=== PATIENT | female | born 1945 | race Caucasian/White ===

== ENCOUNTER → 2017-03-12 08:29 | Outpatient (CLI) | payer MEDICARE, BC ==
[2014-01-05 11:57] VITALS: BMI 32.1
[~2017-03-12 08:29] MED LIST: CLARITIN 10 MG10 MG PO; GLUCOPHAGE1000 MG PO; HYDROCODON-ACE1 EAC7 PO; LASIX20 MG PO; NORVASC5 MG PO; TOPROL XL200 MG PO; ZESTRIL40 MG PO
== END | disposition home or self-care (01) ==
LOC: D.CT 08:29
DX: M51.36 Other intervertebral disc degeneration, lumbar region (principal)

== ENCOUNTER 2017-07-14 05:43 | Day surgery (SDC) | payer MEDICARE, BC ==
[2017-07-13 13:45] LABS: HEMOGLOBIN 11.5 g/dL (12-16); MCH 28.5 pg (26.0-34.0); MCHC 32.9 g/dL (31.0-37.0); MCV 86.8 fL (80.0-100.0); MEAN PLATELET VOLUME 9.9 fL (7.4-10.4); RBC 4.03 10x6/uL (4.00-5.40); RDW 13.1 % (11.5-14.5); WBC 6.3 10x3/uL (4.8-10.8)
[2017-07-13 14:11] LABS: ANION GAP 11.6 mmol/L (8-16); CALCIUM 8.9 mg/dL (8.5-10.1); CARBON DIOXIDE 30.2 mmol/L (21.0-32.0); CREATININE - SERUM 1.1 mg/dL (0.6-1.3); POTASSIUM - SERUM 4.8 mmol/L (3.5-5.1)
[~2017-07-14] VITALS: Ht 144.8 cm; Wt 65.3 kg
--- NOTE | ~2017-07-14 | OP ---
PATIENT NAME: OMAYRA ONTIVEROS MEDICAL RECORD: [id number] :47 LOCATION:[facility] ADMISSION DATE: SURGEON: ROSALIA IRIZARRY MD DATE OF OPERATION: 07/14/2017 PREOPERATIVE DIAGNOSIS: Disc herniation L4-L5, right with lumbar spinal stenosis and foraminal stenosis at L4-L5, right. PROCEDURES: Lumbar laminotomy, medial facetectomy and foraminotomy and discectomy at L4-L5 right with METRx retractor. DESCRIPTION AND TECHNIQUE: After induction of general endotracheal anesthesia, the patient was rolled prone on a Daren frame. Lumbar spine was prepped and draped in usual sterile fashion. Fluoroscopic x-ray and spinal needle localized at L4-L5 interspace on the right side. A stab incision was created with #11 blade and series of dilators was used to advance a METRx retractor to the L4-L5 interspace on the right side. Flow was confirmed with fluoroscopic x-ray. A microscope and Midas Kirt drill were used to perform laminotomy, medial facetectomy and foraminotomy of L4-L5 on the right. Hypertrophied ligamentum flavum was removed with Cloward rongeurs. Following this, the dura was decompressed well. Posteriorly, there is a ventral disc herniation compressing the nerve root from the ventral side. This was removed with pituitary rongeurs. Additional material was removed from the disc space with curettes and pituitary rongeurs. Following this, the L5 nerve root was decompressed well. Meticulous hemostasis was maintained throughout the wound. Wound was irrigated with copious amounts of Ancef irrigant solution. The retractor was removed. The fascia was closed with 2-0 Vicryl suture, the subdermal layer was closed with 3-0 Vicryl suture, and skin was closed with tesfaye. A sterile dressing was applied to the wound. The patient was awakened in good condition and taken to recovery. All counts were reported as correct. Estimated blood loss was minimal. TRANSINT:[id number] Voice Confirmation ID: [id number] DOCUMENT ID: [id number] ROSALIA IRIZARRY MD CC: [id number] DICTATION DATE: 07/21/171727 LANDSCAPE HORTICULTURE INSTRUCTOR: 07/21/17 1830 [facility] 07/14/17 [place] [address]
[2017-07-14] MEDS ORDERED: DESERYL100 MG PO (11:15)
[2017-07-14] MEDS ORDERED: OMEPRAZOLE40 MG PO (11:15)
[2017-07-14] MEDS ORDERED: NEURONTIN600 MG (11:16)
[2017-07-14] MEDS ORDERED: FEXOFENADINE H180 MG PO (11:17)
[2017-07-14] MEDS ORDERED: HYDROCODONE-APA1 TAB PO (11:18)
[2017-07-14 11:29] VITALS: BP 137/69; Ht 144.8 cm; Wt 65.3 kg
== END 2017-07-14 17:24 | disposition home or self-care (01) ==
LOC: D.OPS 05:43 → D.PAN 12:00 → D.OPS 17:24
PROVIDERS: Anesthesiology
DX: M51.16 Intervertebral disc disorders with radiculopathy, lumbar region (principal); I10 Essential (primary) hypertension; E78.5 Hyperlipidemia, unspecified; Z95.0 Presence of cardiac pacemaker; Z01.812 Encounter for preprocedural laboratory examination

== ENCOUNTER → 2018-10-11 12:11 | Outpatient (CLI) | payer MEDICARE, BC ==
[2017-07-14 11:29] VITALS: BMI 31.2
--- NOTE | ~2018-10-11 | EC ---
PATIENT:OMAYRA ONTIVEROS DATE OF SERVICE: 10/11/18 SEX: F MEDICAL RECORD: [id number] DATE OF : 47 LOCATION:[facility] AGE OF PATIENT: 73 ADMISSION DATE: 10/11/18 REFERRING PHYSICIAN: INTERPRETING PHYSICIAN: ROSY ABAD MD ECHOCARDIOGRAM REPORT ECHO CHARGES 4 ECHO COMPLETE Date: 10/11/18 CLINICAL DIAGNOSIS: ARRHYTHMIAS H/O HTN/PACEMAKER PLACEMENT ECHOCARDIOGRAPHIC MEASUREMENTS (adult normal given) AC root (d.<3.7cm) 3.1 cm LV Septum d (<1.2 cm> 0.8 cm Valve Excursion 0.8 cm LV Septum (systole) 1.5 cm Left Atria (s.<4.0cm> 3.3 cm LVPW d(<1.2cm) 0.8 cm RV (d.<2.3cm) 2.5 cm LVPW (sytole) 1.5 cm LV diastole(<5.6CM) 4.7 cm MV E-F(>70mm/sec) cm LV systole 2.5 cm LVOT Diameter 1.8 cm MV exc.(>10mm) cm Est.ejection fraction (50-75%) % DOPPLER: LVIT cm/sec A 119 cm/sec E 102 cm/sec LA cm/sec RVSP 41.2 mmHg LVOT 105 cm/sec AOP1/2T m/s Asc. Ao 460 cm/sec RVOT 57.0 cm/sec RA cm/sec PA 101 cm/sec AV Gradient Peak 85.0 mmHg AV Mean 56.0 mmHg AV Area 0.6 cm MV Gradient Peak 8.0 mmHg MV Mean 2.6 mmHg MV Area cm COMMENTS: OP - HC Skip Load Driver: 1 PAVEL BARCENASOE Kitchen Manager: 3 Dr. Sarmiento TAPE# PACS Pericardial Effusion N DATE OF SERVICE: Adequate 2-D echo, color-flow and spectral Doppler, and M-mode. No LVH. LV internal dimension is normal. Wall motion normal. EF is greater than or equal to 55%. Aortic valve is calcified with restriction of leaflet motion. Peak gradient of 85 mmHg, putting this in severe range. Left atrium is normal at 3.3 cm. Mitral valve shows no prolapse. Trace TR. Right-sided chambers are grossly normal. Trace TR. ECHOCARDIOGRAM REPORT [id number] OMAYRA ONTIVEROS TRANSINT:[id number] Voice Confirmation ID: [id number] DOCUMENT ID: [id number] ROSY ABAD MD CC: [id number] DICTATION DATE: 10/12/18 1203 PICKLE CUTTER: 10/12/18 1247 DEP CLI 10/11/18 [place] [id number] [place] [id number]
[~2018-10-11 12:11] MED LIST changes: +DESERYL100 MG PO; +FEXOFENADINE H180 MG PO; +HYDROCODONE-APA1 TAB PO; +NEURONTIN600 MG; +OMEPRAZOLE40 MG PO
== END | disposition home or self-care (01) ==
LOC: D.HCCARDIO 12:11
PROVIDERS: ATTEND Internal Medicine Interventional Cardiology
DX: I48.91 Unspecified atrial fibrillation (principal)

== ENCOUNTER → 2018-10-26 11:21 | Outpatient (CLI) | payer MEDICARE, BC ==
--- NOTE | ~2018-10-26 | HEMODYNAMI ---
PATIENT:OMAYRA ONTIVEROS MEDICAL RECORD: [id number] : 47 LOCATION:[facility] ADMISSION DATE: 10/26/18 Generatedon:10/26/201814:42 Patient name: OMAYRA ONTIVEROS Patient #: [id number] SSN: DO B: 1945 Date of study: 10/26/2018 Page: Of Hemodynamic Procedure Report Patient Data Patient Demographics Procedure consent was obtained First Name: OMAYRA Gender: Female Last Name: RAMA : 1945 Middle Initial: ALMA Age: 73 year(s) Patient #: [id number] Race: Unknown Additional ID: [id number] Contact details Address: [place] [address] State: [place] City: [place] Zip code: [address] Past Medical History Allergies Allergen Reaction Date Comments Reported Other allergy 10/26/2018 adhesive tape, aspirin, hydrocodone, nsaids, tylenol Admission Admission Data Admission Date: 10/26/2018 Admission Time: 11:21 Admit Source: Other Lab Results Lab Result Date: 10/26/2018 Lab Result Time: 0:05 Biochemistry Name Units Result Min Max BUN mg/dl 13 --(--*-)-- 7 18 Creatinine mg/dl 0.9 --(-*--)-- 0.6 1.3 CBC Name Units Result Min Max Hematocrit % 35.4 *-(----)-- 42 54 Hemoglobin g/dl 11.8 *-(----)-- 13.5 17.5 Procedure Procedure Types Cath Procedure Diagnostic Procedure LHC LHC w/Coronaries Peripheral Cath Diagnostic Procedure Band Maker Peripheral Procedures Four Vessel Arteriogram Procedure Description Procedure Date Procedure Date: 10/26/2018 Procedure Start Time: 14:23 Procedure End Time: 14:41 Procedure Staff Name Function Mannie Hanks MD Performing Physician Robert Driscoll RT Monitor Love Gastelum RT Scrub Crystal Montana RN Nurse Procedure Data Cath Procedure Fluoroscopy Diagnostic fluoroscopy Total fluoroscopy Time: 3.4 time: 3.4 min min Diagnostic fluoroscopy Total fluoroscopy dose: 624 dose: 624 mGy mGy Contrast Material Contrast Material Type Amount (ml) Isovue 300 85 Entry Location Entry Primary Successful Side Size Upsize Upsize Entry Closure Succes sful Closure Location (Fr) 1 (Fr) 2 (Fr) Remarks Device Remarks Femoral Right 5 Fr Exoseal artery Estimated blood loss: 5 ml Diagnostic catheters Device Type Used For End Catheter Placement MULTIPACK JL 4.0 5Fr Procedure catheter DIAGNOSTIC JL 5 5Fr Procedure catheter ([id number]) MULTIPACK 3DRC 5Fr Procedure catheter DIAGNOSTIC AL1 5Fr Procedure catheter ([id number]) Procedure Complications No complications Procedure Medications Medication Administration Route Dosage 0.9% NaCl I.V. 100 ml/hr Oxygen etCO2 Nasal cannula 2 l/min Lidocaine 2% added to field 20 Heparin Flush Bag added to field 2 bags (1000units/500ml NS) Versed I.V. 2 mg Fentanyl I.V. 50 mcg Hemodynamics Rest Heart Rate: 65 (bpm) Pressure Samples Time Site Value (mmHg) Purpose Heart Use Rate(bpm) 14:35 LV 156/26,35 Snapshot 59 Gradients Valve Time Site Site Mean SEP/DFP Peak To Heart Use 1 2 (mmHg) (sec/min) Peak Rate (mmHg) (bpm) Aortic 14:37 LV AO 71 Snapshots Pre Cath Intra NCS Post Cath Vital Signs Time Heart Resp SPO2 etCO2 NIBP (mmHg) Rhythm Pain Sedation Rate (ipm) (%) (mmHg) Status Level (bpm) 14:10:23 65 14 97 13 109/61(81) NSR 0 (11) 10(A) , No pain 14:14:33 66 16 98 37.2 120/71(99) NSR 0 (11) 10(A) , No pain 14:18:45 64 18 98 42.4 114/68(93) NSR 0 (11) 9(A) , No pain 14:24:00 64 19 98 20.1 108/61(89) NSR 0 (11) 9(A) , No pain 14:28:14 64 15 98 26.8 110/54(85) NSR 0 (11) 9(A) , No pain 14:32:28 68 10 98 38 106/59(88) NSR 0 (11) 9(A) , No pain 14:36:34 69 10 98 34.9 101/58(79) NSR 0 (11) 9(A) , No pain 14:40:44 66 12 98 29.7 116/63(103) NSR 0 (11) 10(A) , No pain Medications Time Medication Route Dose Verified Delivered Reason Notes Eff ectiveness by by 14:15:27 0.9% NaCl I.V. 100 Mannie Crystal used for ml/hr Drasco Rubén procedure MD GREENE 14:15:33 Oxygen etCO2 2 Mannie Crystal used for Nasal l/min [facility] procedure cannula MD GREENE 14:15:38 Lidocaine 2% added 20ml Mannie Mannie for local to vial [facility] anesthetic field MD [place] 14:15:43 Heparin Flush added 2 Mannie Mannie used for Bag to bags [facility] procedure (1000units/500ml field MD [place] NS) 14:16:23 Versed I.V. 2 mg Mannie Crystal for Drasco Rubén sedation MD [place] 14:16:33 Fentanyl I.V. 50 Mannie Crystal for mcg Drasco Rubén sedation MD GREENEsurgical assistant Log Time Note 13:40:14 Robert Driscoll RT(R) sent for patient. Start room use. 13:43:49 Informed consent obtained and on chart 13:48:11 Admit Source: Other 13:48:19 Diagnostic Cath status Elective 13:48:21 Time tracking: Regular hours (M-F 7:00 - 5:00) 13:48:24 Plan of Care:Hemodynamics will remain stable., Cardiac rhythm will remain stable., Comfort level will be maintained., Respiratory function will remain adequate., Patient/ family verbilizes understanding of procedure., Procedure tolerated without complication., Recovers from procedure without complications.. 13:48:41 H&P Date Dictated: 10/19/2018 Within 30 days and on chart., H&P Addendum completed by physician on day of procedure. (MUST COMPLETE FOR ALL OUTPATIENTS). 13:50:06 Patient allergic to Other allergyadhesive tape, aspirin, hydrocodone, nsaids, tylenol 13:52:22 Lab Result : BUN 13 mg/dl 13:52:22 Lab Result : Creatinine 0.9 mg/dl 13:52:22 Lab Result : Hemoglobin 11.8 g/dl 13:52:22 Lab Result : Hematocrit 35.4 % 13:52:25 Lab results completed and on chart. 14:03:34 Patient received from Pre/Post Procedure Room to CCL 1 Alert and oriented. Tansferred to table in Supine position. 14:03:36 Warm blankets applied, and emily hugger turned on for patient comfort. 14:03:36 Correct patient and procedure confirmed by team. 14:03:37 ECG and BP/O2 sat monitors applied to patient. 14:09:08 Vital chart was started 14:13:50 Pre-procedure instructions explained to patient. 14:13:51 Pre-op teaching completed and patient verbalized understanding. 14:13:54 Family in waiting room. 14:13:58 Patient NPO since Breakfast. 14:14:01 Is the patient allergic to Iodine/contrast media? No. 14:14:09 Is patient on blood thinner?No 14:14:12 Patient diabetic? Yes. 14:14:15 If diabetic: On Metformin? Yes 14:14:23 If on Metformin: Last Dose? 10/24/2018 14:14:29 Previous problem with sedation/anesthesia? No ? 14:14:30 Snore? Yes 14:14:31 Sleep apnea? No 14:14:32 Deviated septum? No 14:14:33 Opens mouth fully? Yes 14:14:34 Sticks out tongue? Yes 14:14:37 Airway obstruction? No ? 14:14:42 Dentures? Yes top in tight 14:14:47 Pre procedure: right dorsailis pedis pulse 2+ Normal; easily identifiable; not easily obliterated 14:14:49 Patient pain scale 0/10 ?. 14:15:09 IV patent on arrival in left hand with 0.9% NaCl at [facility]. 14:15:14 Right groin area was prepped with chlora-prep and draped in sterile fashion 14:15:16 Alarms reviewed by R. N. 14:15:16 Sharps counted by scrub and verified by R.N. 14:15:25 Use device set Femoral Dx 14:15:27 0.9% NaCl 100 ml/hr I.V. was administered by Crystal Montana RN; used for procedure; 14:15:28 ACIST Syringe (77328) opened to sterile field. 14:15:28 Bag Decanter (2002S) opened to sterile field. 14:15:29 Medline Cath Pack ([id number]) opened to sterile field. 14:15:30 ACIST Hand Control (50168) opened to sterile field. 14:15:31 ACIST Manifold (91521) opened to sterile field. 14:15:32 DIAGNOSTIC Multipack 5Fr catheter set ([id number]) opened to sterile field. 14:15:33 Oxygen 2 l/min etCO2 Nasal cannula was administered by Crystal Montana RN; used for procedure; 14:15:33 Tegaderm 4 x 4 (1626W) opened to sterile field. 14:15:34 SHEATH 5FR [place] (WTC330) opened to sterile field. 14:15:35 DIAGNOSTIC WIRE .035 260cm J wire (464704) opened to sterile field. 14:15:38 Lidocaine 2% 20ml vial added to field was administered by Mannie Hansk MD; for local anesthetic; 14:15:43 Heparin Flush Bag (1000units/500ml NS) 2 bags added to field was administered by Mannie Hanks MD; used for procedure; 14:15:44 Baseline sample Acquired. 14:15:47 Rhythm: sinus rhythm 14:15:49 Full Disclosure recording started 14:15:55 Physician arrived 14:15:56 --------ALL STOP TIME OUT------ 14:15:56 Final Timeout: patient, procedure, and site verified with staff and physician. All members of the team are in agreement. 14:15:58 Right groin site verified by team. 14:16:01 Maximum allowable Isovue 300 dose 300ml. Physician notified. (300ml for normal creatinines. For patients with creatinine of 1.7 or higher multiply weight(kg) x 5 divided by creatinine.) 14:16:09 Fire Safety Assessment: A--An alcohol-based skin anteseptic being used preoperatively., C--Open oxygen or nitrous oxide is being used., D--An ESU, laser, or fiber-optic light is being used. 14:16:12 Physical assessment completed. ASA score P 2 - A patient with mild systemic disease as per Mannie Hanks MD. 14:16:17 Sedation plan: IV Moderate Sedation Medication:Versed, Fentanyl 14:16:23 Versed 2 mg I.V. was administered by Crystal Montana RN; for sedation; 14:16:33 Fentanyl 50 mcg I.V. was administered by Crystal Montana RN; for sedation; 14:19:19 Zero performed for pressure channel P1 14:19:26 Zero performed for pressure channel P1 14:23:07 Procedure started. 14:23:12 Local anesthetic to right femoral artery with Lidocaine 2% by Mannie Hanks MD.INITIAL ACCESS ONLY 14:23:39 A 5 Fr sheath was inserted into the Right Femoral artery 14:24:12 A MULTIPACK JL 4.0 5Fr catheter was advanced over the wire and used for Procedure. 14:25:00 LCA angiography performed. 14:27:37 Catheter exchanged over wire. 14:27:49 A DIAGNOSTIC JL 5 5Fr catheter ([id number]) was advanced over the wire and used for Procedure. 14:28:31 LCA angiography performed. 14:28:46 Catheter exchanged over wire. 14:28:52 A MULTIPACK 3DRC 5Fr catheter was advanced over the wire and used for Procedure. 14:29:40 RCA angiography performed. 14:30:47 Right carotid angiography performed. 14:31:20 Left carotid angiography performed. 14:31:49 Catheter exchanged over wire. 14:33:38 A DIAGNOSTIC AL1 5Fr catheter (558117S) was advanced over the wire and used for Procedure. 14:34:42 ROADRUNNER .035 260 glide wire (N47117) opened to sterile field. 14:35:12 road runner wire advanced. 14:36:32 LV gram done using SAEED 14:36:34 Injector settings: Ml/sec: 5, Volume: 15, 14:36:36 LV hemodynamics recorded. 14:37:19 EF : 50 % 14:37:42 Catheter removed. 14:37:44 EXOSEAL 5Fr (EX500) opened to sterile field. 14:37:57 Sheath removed intact; hemostasis achieved with Exoseal to the Right Femoral artery. 14:37:59 Procedure ended.(Physican Out) 14:38:35 Fluoroscopy time 03.40 minutes. 14:38:40 Flurop Dose total: 624 14:38:40 Fluoroscopy dose: 624 mGy 14:38:46 Contrast amount:Isovue 300 85ml. 14:38:48 Sharps counted by scrub and verified by R.N. 14:38:51 Insertion/operative site no bleeding no hematoma. 14:39:44 Post Procedure Pulses reassessed and unchanged 14:39:47 Post-procedure physical assessment completed. ASA score P 2 - A patient with mild systemic disease as per Mannie Hanks MD. 14:39:50 Post procedure rhythm: unchanged. 14:39:53 Estimated blood loss: 5 ml 14:39:55 Post procedure instruction explained to patient.Patient verbalizes understanding. 14:39:56 Patient needs reinforcement of post procedure teaching. 14:41:26 Procedure and supply charges have been captured, reviewed, submitted and are correct. 14:41:28 Procedure Complication : No complications 14:41:30 Vital chart was stopped 14:41:31 See physician's report for complete and final results. 14:41:32 Report given to Pre/Post Procedure Room. 14:41:34 Patient transfered to Pre/Post Procedure Room with Stretcher. 14:41:36 Procedure ended. 14:41:36 Full Disclosure recording stopped 14:41:39 End room use (Document Last) Device Usage Item Name Manufacture Quantity Catalog Hospital Part Current Minimal L ot# / Number Charge Number Stock Stock Serial# Code ACIST Acist 1 52296 237240 337402 245536 20 Syringe Medical (66369) Systems Inc Bag Microtek 1 2001S 460838 20017 149824 5 Decanter Medical Inc. () Medline Medline 1 [id number] 535666 70882 704106 5 Cath Pack ([id number]) ACIST Hand Acist 1 15427 349965 441238 764912 5 Control Medical (48879) Systems Inc ACIST Acist 1 30897 182407 966224 772719 5 Manifold Medical (90077) Systems Inc DIAGNOSTIC Cardinal 1 [id number] 311706 49586 814995 30 Multipack Health 5Fr catheter set (KI2383) Tegaderm 4 3M 1 1626W 182528 821464 904489 5 x 4 (1626W) SHEATH 5FR Terumo 1 AGR795 055624 742450 244841 5 [place] (SQV186) DIAGNOSTIC [facility] Josef 1 665548 043420 547761 455039 30 WIRE .035 260cm J wire (711219) MULTIPACK Cardinal 1 182750 5 JL 4.0 5Fr Health catheter DIAGNOSTIC Cardinal 1 [id number] 164245 263818 012412 5 JL 5 5Fr Health catheter (155926O) MULTIPACK Cardinal 1 299471 5 3DRC 5Fr Health catheter DIAGNOSTIC Cardinal 1 [id number] 628942 404258 813932 15 AL1 5Fr Health catheter (985693M) [facility] 1 Q19881 060023 630570 557737 5 .035 260 glide wire (W28188) EXOSEAL 5Fr Cardinal 1 EX500 833765 313061 384833 10 (EX500) Health Signature Audit [place] Stage Time Signature Unsigned Intra-Procedure 10/26/2018 Robert Driscoll 2:42:17 PM RT(R) Signatures Monitor : Robert Driscoll RT Signature : Date : Time : [address] [address]
[~2018-10-26 11:21] MED LIST changes: +AMIODARONE HCL200 MG PO; +COLACE100 MG PO; -GLUCOPHAGE1000 MG PO; +GLUCOPHAGE500 MG PO; +HEMOCYTE PLUS C1 CAP PO; +HUMULIN R100 U/ML SC; +K-TAB10 MEQ PO; +LIPITOR10 MG PO; +LOPRESSOR25 MG PO; +MYLANTA / MAALO30 ML PO; -NEURONTIN600 MG; +NEURONTIN800 MG PO; +NORVASC10 MG PO; -NORVASC5 MG PO; +OPTIVE SENSITI1 EACH EACH EYE; +PERCOCET 5-3251 TAB PO; +PRED FORTE5 ML LEFT EYE; +REFRESH; +Senokot-S Tablet PO; +ULTRAM50 MG PO; +ZOLOFT100 MG PO; +ZOLOFT50 MG PO
[2018-10-26 11:59] VITALS: BP 144/73; BMI 32.7
[2018-10-26 12:41] LABS: ANION GAP 14.4 mmol/L (8-16); CARBON DIOXIDE 25.9 mmol/L (21.0-32.0); CREATININE - SERUM 0.9 mg/dL (0.6-1.3); POTASSIUM - SERUM 4.3 mmol/L (3.5-5.1)
[2018-10-26 12:50] LABS: BASOPHILS 1.1 % (0-2); EOSINOPHILS 1.5 % (0-7); HEMATOCRIT 35.4 % (36.0-48.0); HEMOGLOBIN 11.8 g/dL (12-16); IMMATURE GRANULOCYTES 0.7 % (0-5); MCHC 33.3 g/dL (31.0-37.0); MCV 84.1 fL (80.0-100.0); MONOCYTES 6.3 % (2-11); NEUTROPHILS 55.4 % (40-80); PLATELET COUNT 244 10x3/uL (130-400); RBC 4.21 10x6/uL (4.00-5.40); RDW 13.2 % (11.5-14.5); WBC 7.2 10x3/uL (4.8-10.8)
--- NOTE | 2018-10-26 14:50 | NUR ---
RECIEVED TO ROOM VIA STRETCHER FROM SALES UTILITY REPRESENTATIVE WITH 5 FR EXOSEAL R/GROIN CDI NO BLEEDING OR HEMATOMA NOTED. INSTRUCTED PATIENT TO KEEP HEAD FLAT ON PILLOW WITH RLE STRAIGHT. DR ABAD PRESENT IN ROOM WITH FAMILY.
--- NOTE | 2018-10-26 15:13 | NUR ---
5 FR EXOSEAL R/GROIN IS CDI WITH NO BLEEDING OR HEMATOMA NOTED. TOLERATING SIPS OF SODA WITH NAUSEA DENIED
--- NOTE | 2018-10-26 15:49 | NUR ---
5 FR EXOSEAL R/GROIN IS CDI WITH NO BLEEDING OR HEMATOMA NOTED. PATIENT TOLERATING SANDWICH AND SODA WITH NAUSEA DENIED. HOB UP 30 FOR COMFORT
--- NOTE | 2018-10-26 16:04 | NUR ---
5 FR EXOSEAL R/GROIN IS CDI WITH CHEST PAIN DENIED. PIV REMOVED WITH DRESSING APPLIED. PATIENT UP TO GET DRESSED FOR DISCHARGE HOME WITH FAMILY NO DISTRESS
--- NOTE | 2018-10-26 16:12 | NUR ---
PIV REMOVED WITH DRESSING APPLIED. 5 FR EXOSEAL R/GROIN IS CDI. PATIENT UP TO GET DRESSED FOR DISCHARGE HOME NO DISTRESS
--- NOTE | 2018-10-26 16:18 | NUR ---
VERBAL AND WRITTEN DISCHARGE GONE OVER WITH PATIENT AND FAMILY. 5 FR EXOSEAL R/GROIN IS CDI NO BLEEDING OR HEMATOMA NOTED. PATIENT DENIED CHEST PAIN. LEFT VIA WC TO PARKING FOR TRANSPORT HOME NO DISTRESS
--- NOTE | 2018-11-03 14:15 | OP ---
PATIENT NAME: OMAYRA ONTIVEROS MEDICAL RECORD: [id number] :47 LOCATION:D.CAT ADMISSION DATE: SURGEON: ROSY ABAD MD DATE OF OPERATION: 10/26/2018 PROCEDURE: Left heart catheterization, selective coronary angiography plus 4-vessel arteriography, right femoral artery approach. CATHETERS: Lisandra left, Lisandra right, AL2, and we were able to run a wire across the aortic valve. The procedure was well tolerated. The patient was returned to the chew. Sheath was removed. ExoSeal device was placed. FINDINGS: Left ventriculography in 30-degree SAEED view: Normal wall motion and normal systolic function. A pullback across the aortic valve showed a gradient of 60 mmHg consistent with 72 at echocardiography study. CORONARY ANATOMY: LEFT MAIN: Left main is free of disease. LAD: Has about 90% stenosis in distal third. This is a small vessel, not quite hitting the apex. CIRCUMFLEX: Codominant has about 50% proximal stenosis. RIGHT CORONARY ARTERY: Again, codominant, free of disease. The right common carotid was selectively engaged. This showed a smooth wall right common carotid artery. Right internal carotid is small vessel, free of disease. Right external carotid is small vessel, free of disease. The catheter was pulled proximally into the left common carotid to selectively engage. The left common carotid is smooth-walled vessel, free of disease. Left internal carotid is smooth-walled vessel, free of disease. Left external carotid is smooth-walled vessel, free of disease. IMPRESSION: Critical aortic stenosis, single vessel disease. No evidence of carotid artery disease for graft valve single vessel coronary artery bypass grafting. TRANSINT:[id number] Voice Confirmation ID: [id number] DOCUMENT ID: [id number] ROSY ABAD MD at 1415 CC: [id number] DICTATION DATE: 10/26/18 1448 DEVELOPMENT REPRESENTATIVE: 10/26/18 1701 DEP CLI 10/26/18 [id number] [place] [address]
== END | disposition home or self-care (01) ==
LOC: D.CATH 11:21
PROVIDERS: ATTEND Internal Medicine Interventional Cardiology
DX: I35.0 Nonrheumatic aortic (valve) stenosis (principal); R42 Dizziness and giddiness

== ENCOUNTER 2018-10-27 13:27 | Inpatient (IN) | payer MEDICARE, BC ==
[~2018-10-27 13:27] MED LIST changes: -AMIODARONE HCL200 MG PO; -COLACE100 MG PO; -HEMOCYTE PLUS C1 CAP PO; -HUMULIN R100 U/ML SC; -K-TAB10 MEQ PO; -LOPRESSOR25 MG PO; -MYLANTA / MAALO30 ML PO; -OPTIVE SENSITI1 EACH EACH EYE; -PERCOCET 5-3251 TAB PO; -PRED FORTE5 ML LEFT EYE; -REFRESH; -Senokot-S Tablet PO; -ZOLOFT50 MG PO
[2018-10-27 15:19] LABS: BASOPHILS 1.5 % (0-2); EOSINOPHILS 2.1 % (0-7); HEMATOCRIT 36.3 % (36.0-48.0); IMMATURE GRANULOCYTES 0.7 % (0-5); LYMPHOCYTES 40.3 % (15-50); MCH 28.1 pg (26.0-34.0); MCHC 33.1 g/dL (31.0-37.0); MONOCYTES 6.9 % (2-11); NEUTROPHILS 48.5 % (40-80); PLATELET COUNT 241 10x3/uL (130-400); RBC 4.27 10x6/uL (4.00-5.40); RDW 13.3 % (11.5-14.5); WBC 6.8 10x3/uL (4.8-10.8)
[2018-10-27 15:32] LABS: INR 0.97 (0.85-1.17); PROTIME 12.4 SECONDS (11.6-15.0)
[2018-10-27 15:46] LABS: ALBUMIN 3.9 g/dL (3.4-5.0); ANION GAP 15.6 mmol/L (8-16); BILIRUBIN - TOTAL 0.23 mg/dL (0.2-1.3); CALCIUM 8.8 mg/dL (8.5-10.1); CARBON DIOXIDE 26.2 mmol/L (21.0-32.0); POTASSIUM - SERUM 3.8 mmol/L (3.5-5.1); PROTEIN - SERUM 7.5 g/dL (6.4-8.2); T4 THYROXIN - FREE 0.78 ng/dL (0.76-1.46); THYROID STIMULATING HORMONE 1.42 uIU/mL (0.36-3.74); URIC ACID 3.5 mg/dL (2.6-7.2)
[2018-10-27 15:52] LABS: APPEARANCE CLEAR (CLEAR); BILIRUBIN NEGATIVE (NEGATIVE); COLOR YELLOW (YELLOW); GLUCOSE NEGATIVE (NEGATIVE); KETONE NEGATIVE (NEGATIVE); NITRITE NEGATIVE (NEGATIVE); PROTEIN NEGATIVE (NEGATIVE); UROBILINOGEN NORMAL (NORMAL); WHITE CELLS - URINE 25-50 /hpf (0-5)
[2018-10-27 15:53] LABS: BACTERIA MODERATE /hpf (NONE SEEN); EPITHELIAL CELLS OCC /hpf (0-5); RED CELLS - URINE 0-5 /hpf (0-5)
[2018-10-29] VITALS (49 sets, daily range): BP systolic 106–131; BP diastolic 36–66; BMI 32.3; BMI 34.3
[2018-10-29] MEDS ORDERED: PRED FORTE5 ML LEFT EYE ×2 (06:13→06:14)
[2018-10-29] MEDS ORDERED: OPTIVE SENSITI1 EACH EACH EYE (06:16)
[2018-10-29] MEDS ORDERED: REFRESH (06:17)
--- NOTE | 2018-10-29 11:01 | NUR ---
BRUISING NOTED PRIOR TO PROCEDURE ON INNER RIGHT THIGH.
[2018-10-29 11:58] LABS: BASOPHILS 0.3 % (0-2); EOSINOPHILS 0.7 % (0-7); IMMATURE GRANULOCYTES 0.6 % (0-5); LYMPHOCYTES 15.8 % (15-50); MCH 27.7 pg (26.0-34.0); MCHC 33.2 g/dL (31.0-37.0); MCV 83.4 fL (80.0-100.0); MEAN PLATELET VOLUME 9.9 fL (7.4-10.4); MONOCYTES 3.1 % (2-11); NEUTROPHILS 79.5 % (40-80); RDW 13.1 % (11.5-14.5)
[2018-10-29 12:00] LABS: HEMATOCRIT 27.7 % (36.0-48.0); HEMOGLOBIN 9.2 g/dL (12-16); RBC 3.32 10x6/uL (4.00-5.40); WBC 10.1 10x3/uL (4.8-10.8)
[2018-10-29 12:01] LABS: PLATELET COUNT 183 10x3/uL (130-400)
[2018-10-29 12:17] LABS: APPEARANCE CLEAR (CLEAR); BILIRUBIN NEGATIVE (NEGATIVE); COLOR YELLOW (YELLOW); GLUCOSE NEGATIVE (NEGATIVE); KETONE NEGATIVE (NEGATIVE); NITRITE NEGATIVE (NEGATIVE); PROTEIN NEGATIVE (NEGATIVE); SPECIFIC GRAVITY 1.015 (1.005-1.020); UROBILINOGEN NORMAL (NORMAL)
[2018-10-29 12:40] LABS: INR 1.73 (0.85-1.17); PROTIME 19.6 SECONDS (11.6-15.0)
--- NOTE | 2018-10-29 13:54 | NUR ---
1227 PT ARRIVED FROM OR SEDATEDD FROM SURGERY ETT PLACED ONV ENT VIA RT, R IJ CVL WITH SWAN GREG LOCKED, PLASMALYTE, NITRO, INFUSING, 20MEQ KCL PER DR DIAZ AFTER ABGS REVIEWED ZINACEF ININTIATED PER EMAR, DR DIAZ STATED TO LEAVE NITRO AT 1.5ML/HR AND ININTIATE CLEVEPREX TO KEEP SYSTOLIC BP UNDER 130, R RADIAL A LINE ZEROED, GOOD WAVEFORM, WRIST PROTECTOR IN PLACE, MIDSTERNAL INCISION DRESSING CDI, SUBSTERNAL CTX2 TO20CM SUCTION WITH BLOODY DRAINAGE NO AIR LEAK, SUBSTERNAL QUINTON DRAIN COMPRESSED, CRITICORE DRAINING YELLOW URINE, PPM INTEREGATED AND RATE CHANGED TO 70, SCDS AND TEDS IN PLACE, FAMILY IN ROOM, DECLINED TO SET UP PASSCODE, ALARMS SET, WILL CONTINUE TO MONITOR
[2018-10-29 14:52] LABS: INR 1.4 (0.85-1.17); PROTIME 16.6 SECONDS (11.6-15.0)
--- NOTE | 2018-10-29 15:36 | NUR ---
ABG DONE TO RECHECK K AND THAT PT BREATHING ONLY MUCH VENT SET AT, DR DIAZ NOTIFIED OF RESULTS AND RT CHANGED RATE TO 12
--- NOTE | 2018-10-29 17:24 | NUR ---
PT DAUGHTER STATES PT GETS NAUSOUS AFTER EVERY SURGERY SHE HAS, ASKED PT IF SHE WAS NAUSOUS AND SHE NODS YES, ZOFRAN GIVEN PER EMAR
--- NOTE | 2018-10-29 17:25 | NUR ---
PT RR REMAINS RIDING THE VENT AT 12 UNLESS PT FAMILY TALKING WITH HER AND REMINDING TO BREATH AND STAY AWAKE, WHEN NO ONE TALKING TO PT RR RETURNS TO 12 AND SHE RELIES ON VENT, WILL CONTINUE TO MONITOR
--- NOTE | 2018-10-29 18:11 | NUR ---
DR DIAZ NOTIFIED OF PT CONTINUING TO RIDE VENT, ORDERS TO CHANGE RATE TO 8 AND ABG IN 2 HOURS, MATTHEW WITH RT NOTIFIED AND VENT CHANGED
--- NOTE | 2018-10-29 18:29 | NUR ---
ORAL CARE WITH PERIDEX PROVIDED
--- NOTE | 2018-10-29 20:58 | NUR ---
SPOKE WITH DR DIAZ REGARDING MOST RECENT ABG RESULTS. INSTRUCTED TO PLACE PT ON PROPOFOL AND D/C SEDATION AT 0400 WILL REASSESS ITUBATION STATUS IN AM
--- NOTE | 2018-10-29 23:00 | NUR ---
REASSESSMENT COMPLETED. SEE FLOWSHEET
[2018-10-30] VITALS (79 sets, daily range): BP systolic 88–157; BP diastolic 37–88; BMI 35.0
--- NOTE | 2018-10-30 05:00 | NUR ---
CHG BATH AND COMPLETE LINEN CHANGE PERFORMED. WILL MONITOR
[2018-10-30 05:50] LABS: BASOPHILS 0.3 % (0-2); EOSINOPHILS 0.2 % (0-7); HEMATOCRIT 28.7 % (36.0-48.0); HEMOGLOBIN 9.6 g/dL (12-16); IMMATURE GRANULOCYTES 0.4 % (0-5); LYMPHOCYTES 13.1 % (15-50); MCH 27.9 pg (26.0-34.0); MCHC 33.4 g/dL (31.0-37.0); MCV 83.4 fL (80.0-100.0); MEAN PLATELET VOLUME 9.9 fL (7.4-10.4); MONOCYTES 8.6 % (2-11); NEUTROPHILS 77.4 % (40-80); PLATELET COUNT 162 10x3/uL (130-400); RBC 3.44 10x6/uL (4.00-5.40); RDW 14.1 % (11.5-14.5)
--- NOTE | 2018-10-30 06:22 | NUR ---
DECREASED URINE OYUTPUT NOTIED. WILL NOTIFY
[2018-10-30 06:45] LABS: ALBUMIN 2.9 g/dL (3.4-5.0); ALKALINE PHOSPHATASE 38 U/L (46-116); ALT (SGPT) 25 U/L (10-68); BILIRUBIN - TOTAL 0.36 mg/dL (0.2-1.3); CALC OSMOLALITY 274 mosm/kg (275-300); CALCIUM 7.8 mg/dL (8.5-10.1); CARBON DIOXIDE 24.4 mmol/L (21.0-32.0); CHLORIDE - SERUM 104 mmol/L (98-107); CREATININE - SERUM 0.7 mg/dL (0.6-1.3); GLUCOSE 146 mg/dL (74-106); POTASSIUM - SERUM 3.8 mmol/L (3.5-5.1); PROTEIN - SERUM 5.4 g/dL (6.4-8.2); SODIUM 136 mmol/L (136-145); UREA NITROGEN 13 mg/dL (7-18); eGFR NON AFRICAN AMERICAN 87 mL/min (90-120)
--- NOTE | 2018-10-30 07:02 | NUR ---
ORAL CARE DONE
--- NOTE | 2018-10-30 08:40 | NUR ---
0700-RECIEVED AWAKE AND ALERT -AGITATED AT THIS TIME -REGARDING RESTRAINTS AND VENTILATOR-EXPLAINED NEED FOR BOTH AND OUTLINED PLAN FOR SAFE REMOVAL-PT NODDED UNDERSTANDING AT THIS -GTT RATES PLACED IN GTT RATE FLOW SHEET REFLECTS HOW INFUSIONS RECIEVED FROM PREVIOUS SHIFT
--- NOTE | 2018-10-30 08:58 | NUR ---
CHANGED TO CPAP-GUILLE Rodriguez
--- NOTE | 2018-10-30 09:27 | NUR ---
DR CUETO-SPOKE WITH AND PT -DIRECTED PT TO LIFT HEAD OFF PILLOW-ABLE TO DO SAME-DIRECTED TO EXTUBATE AT THIS TIME-RT NIF AND VC IN PROGRESS
--- NOTE | 2018-10-30 10:01 | OP ---
PATIENT NAME: OMAYRA ONTIVEROS MEDICAL RECORD: [id number] :47 LOCATION:D.I [id number] ADMISSION DATE:10/29/18 SURGEON: CYRIL DIAZ MD DATE OF OPERATION: 10/29/2018 SURGEON: Cyril Diaz MD FINISHED GOODS INSPECTOR: Guille Hunt OPERATION PERFORMED: 1. Aortic valve replacement (19 mm pericardial bioprosthesis). 2. Coronary artery bypass graft times 1 (left internal mammary artery to LAD). PREOPERATIVE DIAGNOSES: Aortic valve stenosis and coronary artery disease. POSTOPERATIVE DIAGNOSES: Aortic valve stenosis and coronary artery disease. ANESTHESIA: General endotracheal anesthesia. ESTIMATED BLOOD LOSS: Total cardiopulmonary bypass with Cell Saver retransfusion and 1 packed red blood cell, 1 platelets. COMPLICATIONS: None. SPECIMENS: Aortic valve leaflets. CONDITION: Stable. DISPOSITION: CV ICU. OPERATIVE FINDINGS: 1. Transesophageal echocardiography confirmed severely calcified and essentially immobile aortic valve leaflets with significant left ventricular hypertrophy and post-aortic valve replacement. No perivalvular leak. 2. Severe aortic valve calcification with a functionally bicuspid valve with fusion of the right and noncoronary cusps, debrided well including the extensive calcification of the annulus. 3. LAD is 1.5-mm with severe disease, the vessel beyond the diagonal was significantly smaller so the anastomosis was made just at the origin of the diagonal with some diffuse disease downstream. OPERATIVE INDICATION: Aortic valve replacement with significant symptoms and coronary artery disease. OPERATIVE SUMMARY IN DETAIL: The patient was brought to the operating suite. General anesthesia was obtained. The patient was prepped and draped. The median sternotomy incision was made. Subcutaneous tissues were divided with electrocautery. Sternum was divided with a saw. Left hemisternum was elevated. Left pleural cavity was entered. Left internal mammary artery and vein was taken down as a pedicle graft. Sternal retractor was placed. Pericardium was opened. Heparin was given. The aortic cannula was inserted. Dual-stage venous cannula was inserted. The internal mammary was clipped distally and made ready for anastomosis. The patient was placed on cardiopulmonary bypass after activated clotting time was OPERATIVE REPORT [id number] OMAYRA ONTIVEROS appropriately elevated. The patient was cooled. Retrograde cardioplegia cannula was inserted. A crossclamp was placed. A 14-gauge angiocatheter was used for antegrade cardioplegia insertion and cardioplegia was given antegrade and retrograde and then repeated at about 15 minute intervals using retrograde. Left ventricular vent was placed at the right superior pulmonary vein. A transverse aortotomy was performed. The valve was visualized. Leaflets and calcium were debrided. Thorough irrigation was undertaken protecting the left main. The valve sutures were pledgeted sutures, placed from the the ventricular to the aortic side after the valve had been sized to 19-mm. These sutures were placed through the valve sewing ring. The valve was carefully lowered in place. Each suture was individually tied and inspecting through the valve, there was no subvalvular obstruction and there was no evidence of perivalvular leak. The aortotomy was then closed using double running pledgeted Prolene suture. Left internal mammary artery was anastomosed to the LAD in a standard fashion. Flow was restored. Pedicle was tacked to the heart. The patient resumed a spontaneous rhythm. The left ventricular apex was de-aired using transesophageal echocardiography for control of the air and then with the patient in Trendelenburg position the cross clamp was removed. The aortic root cannulation site for cardioplegia was oversewn with a pledgeted Prolene suture. The patient resumed a spontaneous rhythm. The retrograde cardioplegia cannula and left ventricular vent were removed and the sites were oversewn. Once the patient was fully rewarmed, the patient was weaned from cardiopulmonary bypass and was stable. The patient was decannulated. The cannula sites were oversewn. Protamine was given. Thorough irrigation was undertaken. Grafts lay appropriately. Good Doppler signal in the internal mammary artery. Left chest was evacuated and irrigated. The internal mammary harvest site was inspected for bleeding. The drains were placed in the mediastinum, left pleural cavity. The pacemaker was interrogated and noted to be working properly. The sternum was closed with wires. Fascia was closed. Subcutaneous tissue was closed. Skin was closed. Dermabond was placed. The needle and sponge counts reported as correct and the patient was taken to the ICU in stable condition. TRANSINT:[id number] Voice Confirmation ID: [id number] DOCUMENT ID: [id number] CYRIL DIAZ MD at 1001 CC: LEON ROSS and ROSY ABAD MD [id number] DICTATION DATE: 10/29/18 1341 AUDIOVISUAL LEAD TECHNICIAN: 10/29/18 1419 ADM IN [facility] [address] [id number]
--- NOTE | 2018-10-30 10:26 | NUR ---
0930-DR DIAZ AT BEDSIDE-PT EXTUBATED BY RT PER PARAMETER-PT AWAKE AND ALERT-DIRECTED TO KEEP SPEECH TO MINIMUM-ICE CHIPS GIVEN- 944-PT C/O EXCRUCIATING PAIN-PERCOCET TAB PO GIVEN-ENCOURAGED DB AND COUGHING HEART PILLOW WITH SPLINTING PROVIDED AND SHOWN HOW TO USE- BRUGHT TO BEDSIDE-ICE CHIPS GIVEN
--- NOTE | 2018-10-30 10:52 | NUR ---
DIRECTED BY DR DIAZ-D/C INSULIN GTT-AND GIVE LOPRESSOR PO NOW-
--- NOTE | 2018-10-30 14:37 | NUR ---
PHYSICAL THERAPY AT BEDSDIE AND STOOD PT WITH AID OF 2-PT C/O DISCOMFORT LOUDLY-ENCOURAGED FOR COOPERATION BY PHYSICAL THERAPY-RELUCTANTLY DONE BY EI-HLFROJACE-ITPOY CHANGE DONE WHILE PT STANDING-HEBICLENS TO BACK DONE-ASSISTED BACK TO BED AND POSITIONED FOR PT COMFORT-CRUZ CARE DONE-AND REASONING GIVEN TO PT-CHRONIC CATHERIZATION REQUIRED BY PT -HIGH RISK FOR CAUTI-PT STATING "STINGS"-QUESTIONED PT IF FOLLOWS CATH CARE AT HOME -STATED HOME HEALTH DOES IT -STATES IN AND OUT CATH-DUE TO NOT BEING ABLE TO EMPTY BLADDER -UP TO 5 TIMES A DAY AND FREQUENT BLADDER INFECTIONS
--- NOTE | 2018-10-30 15:24 | NUR ---
1500-NOTED UCAF ON MONITOR-CALLED TO DR [id number]-NITROGTT AND CLEVIREX TURNED [id number] 150MG BOLUS IV STARTED-PERCOCET 2 TABS PO GIVEN FOR 03/10 INCISIONAL PAIN-- 1529-UPDATE CALL TO DR DIAZ-REMAINS IN AFIB 100-120-ABP INCREASED TO 140'S SYSTOLIC-RESSUMED NTG GTT AT 1.5ML/H-LAB DRAWN FOR MAG AND K
[2018-10-30 16:02] LABS: MAGNESIUM - SERUM 2.2 mg/dL (1.8-2.4)
--- NOTE | 2018-10-30 17:12 | NUR ---
DR. AGUILLON NOTIFIED AND REVIEWED PT'S BEHAVIOR AND ASSESSMENT RESULTS. PT IS A LOW RISK PER DR. AGUILLON. DR. MARLEY STATED TI GIVE RESOURCES TO PT AT TIME OF DISCHARGE. NO FURTHER ORDERS AT THIS TIME. PT REFUSED RESOURSES STATING "IF I WANT TO WOULD I HAVE OPEN HEART SURGERY?" PT DID VERBALIZE UNDERSTANDING.
--- NOTE | 2018-10-30 19:36 | NUR ---
REPORT RECEIVED AND ASSESSMENT COMPLETED. SEE FLOWSHEET FOR FULL DETAILS. PT HAS BEEN EXTUBATED. SWAN GREG NO LONGER IN PLACE. PT RESTING IN ROOM CALL LIGHT IN REACH. A/O. WILL MONITOR THROUGHOUT SHIFT
[2018-10-31] VITALS (24 sets, daily range): BP systolic 100–128; BP diastolic 55–76
--- NOTE | 2018-10-31 | NUR ---
PT IN VARIABLE RATE FIB. RATE CURRENTLY 108. WILL MONITOR CLOSELY FOR ELEVATED RATE.
[2018-10-31 06:00] LABS: BASOPHILS 0.3 % (0-2); EOSINOPHILS 0.3 % (0-7); HEMATOCRIT 28.9 % (36.0-48.0); HEMOGLOBIN 9.2 g/dL (12-16); IMMATURE GRANULOCYTES 0.4 % (0-5); LYMPHOCYTES 10.4 % (15-50); MCH 27.6 pg (26.0-34.0); MCHC 31.8 g/dL (31.0-37.0); MEAN PLATELET VOLUME 10.2 fL (7.4-10.4); NEUTROPHILS 79.6 % (40-80); PLATELET COUNT 132 10x3/uL (130-400); RBC 3.33 10x6/uL (4.00-5.40); RDW 14.2 % (11.5-14.5); WBC 11.3 10x3/uL (4.8-10.8)
[2018-10-31 06:05] LABS: MCV 86.8 fL (80.0-100.0)
[2018-10-31 06:21] LABS: ALBUMIN 2.8 g/dL (3.4-5.0); ALKALINE PHOSPHATASE 44 U/L (46-116); ALT (SGPT) 27 U/L (10-68); BILIRUBIN - TOTAL 0.48 mg/dL (0.2-1.3); CALC OSMOLALITY 277 mosm/kg (275-300); CALCIUM 8.2 mg/dL (8.5-10.1); CARBON DIOXIDE 28.3 mmol/L (21.0-32.0); CHLORIDE - SERUM 102 mmol/L (98-107); CREATININE - SERUM 0.7 mg/dL (0.6-1.3); GLUCOSE 177 mg/dL (74-106); POTASSIUM - SERUM 4.2 mmol/L (3.5-5.1); SODIUM 137 mmol/L (136-145); UREA NITROGEN 13 mg/dL (7-18); eGFR NON AFRICAN AMERICAN 87 mL/min (90-120)
--- NOTE | 2018-10-31 08:26 | NUR ---
0745-PT UP IN CHAIR-DR DIAZ PRESENT -ORDERED OLLIE D/C-R RADIAL OLLIE D/Dino'D PER PROTOCOL-
--- NOTE | 2018-10-31 11:02 | NUR ---
0800-AMBULATED PT TO BED FOR REMOVAL OF CHEST TUBES DIRECTED BY DR DIAZ- CT X2-REMOVED BY SAME -NOTED NO PACER WIRE AND QUINTON DRAIN INSITU AND COMPRESSED-DRG DONE PER PROTOCOL-REVIEWED CRUZ CATH AND FREQUENT SELF CATH AT HOME-URINARY RETENTION-CRUZ CATH TO REMAIN IN PLACE TO STRAIGHT DRAINAGE BAG 0850-PHYSICAL THERAPY AT BEDSIDE -PT AMBULATED WITH STRONG ASSISTANCE AND RELUCTANCE MINIMAL AMOUNT-RELUCTANT TO REMAIN UP IN CHAIR-SPOKE WITH PT AND FAMILY-PHYSICAL THERAPY REQUIREMENT- WELL SELF FEED-FOR IMPROVED RANGE OF MOTION-PT VERY TEARFUL AND MOANING-STATES PAIN IS EXCRUCIATING-PERCOCET 5MG PO GIVEN ORDERED -NOTED PERCOCET 10 PO D/C'D BY DR DIAZ-POOR INCENTIVE SPIROMETER EFFORT-<500ML-DOES USE HEART PILLOW FOR CHEST SPLINTING WITH PRODUCTIVE COUGH-REMAINS UP IN CHAIR AT THIS TIME
--- NOTE | 2018-10-31 19:00 | NUR ---
REPORT RECEIVED, ASSESSMENT COMPLETED, SEE FLOW SHEET FOR FURTHER, PT AAOx4, PT [place] WEARS HEARING AIDS, RT IJ CVL PATENT C/D/I SALINE LOCKED, ALL DRSG'S C/D/I, SUBSTERNAL QUINTON DRAIN INTACT AND COMPRESSED, CRUZ CATH SECURED TO UPPER THIGH, PT STATED SHE HAS TO IN-OUT CATH AT HOME D/T URINARY RETENTION, KYM HOSE ON BLE, PT REFUSES SCD'S, PT IN VARIABLE RATE A-FIB RATE CURRENTLY 100, DAY SHIFT RN STATED THAT IS AWARE OF RATE AND RHYTHM, STATES JUST CONTINUE TO MONITOR; NOTIFY PHYSICIAN IF PT SUSTAINES RATE ABOVE 120 FOR 20 MINUTES. OTHE VSS, I/S EFFORT POOR 500ML, TCDB EXERCISE DONE WITH HEART PILLOW FOR CHEST SPLINT, WILL CONTINUE TO MONITOR
--- NOTE | 2018-10-31 21:00 | NUR ---
MEDS GIVEN PER MAR/ORDERS, PT AAOx4, C/O INCISIONAL AND LEFT FLANK PAIN RATED 9/10 ON NUMERIC PAIN SCALE S/P QUINTON DRAIN RECOMPRESSED AFTER FLUID REMOVAL, PAIN MED GIVEN PER JUL/ORDERS, REPOSITIONED FOR COMFORT, PT CONTINUES A-FIB ON CM, RATE INCREASED D/T PT ACUTE PAIN, OTHER VSS, WILL CONTINUE TO MONITOR
[2018-11-01] VITALS (24 sets, daily range): BP systolic 91–134; BP diastolic 53–79
--- NOTE | 2018-11-01 03:30 | NUR ---
REPOSITIONED PT UP IN BED WITH ASSIST, PT C/O EXCRUTIATING PAIN IN LEFT SIDE AND CHEST WHEN MOVED, RATES 8/10 ON NUMERIC PAIN SCALE, PAIN MED GIVEN PER MAR/ORDERS, NSR ON CM, VSS, WILL CONTINUE TO MONITOR
[2018-11-01 05:53] LABS: BASOPHILS 0.3 % (0-2); EOSINOPHILS 1.4 % (0-7); HEMATOCRIT 26.1 % (36.0-48.0); HEMOGLOBIN 8.2 g/dL (12-16); IMMATURE GRANULOCYTES 0.7 % (0-5); LYMPHOCYTES 14.6 % (15-50); MCH 27.4 pg (26.0-34.0); MCHC 31.4 g/dL (31.0-37.0); MCV 87.3 fL (80.0-100.0); MONOCYTES 9.2 % (2-11); NEUTROPHILS 73.8 % (40-80); PLATELET COUNT 127 10x3/uL (130-400); RBC 2.99 10x6/uL (4.00-5.40); WBC 7.6 10x3/uL (4.8-10.8)
--- NOTE | 2018-11-01 06:00 | NUR ---
CHG BATH COMPLETED, NEW LINEN AND GOWN, PT AMBULATED WITH ASSIST OOB TO CHAIR, POOR I/S EFFORT WITH 500ML AND NEEDS ENCOURAGEMENT THROUGHOUT, TCDB PREFORMED, SUBSTERNAL DRESSING CHANGE COMPLETED, SITE C/D/I, KYM HOSE AND NONSLIP SOCKS ON PT, NSR ON CM, OTHER VSS, WILL CONTINUE TO MONITOR. 0615- AT BEDSIDE, UDATE GIVEN, ALL QUESTIONS ANSWERED, NO FURTHER AT THIS TIME.
[2018-11-01 06:10] LABS: ALBUMIN 2.5 g/dL (3.4-5.0); ALKALINE PHOSPHATASE 48 U/L (46-116); ALT (SGPT) 26 U/L (10-68); BILIRUBIN - TOTAL 0.37 mg/dL (0.2-1.3); CALC OSMOLALITY 271 mosm/kg (275-300); CALCIUM 8.4 mg/dL (8.5-10.1); CARBON DIOXIDE 28.2 mmol/L (21.0-32.0); CHLORIDE - SERUM 100 mmol/L (98-107); CREATININE - SERUM 0.7 mg/dL (0.6-1.3); GLUCOSE 153 mg/dL (74-106); POTASSIUM - SERUM 3.8 mmol/L (3.5-5.1); PROTEIN - SERUM 5.7 g/dL (6.4-8.2); SODIUM 134 mmol/L (136-145); UREA NITROGEN 16 mg/dL (7-18); eGFR NON AFRICAN AMERICAN 87 mL/min (90-120)
--- NOTE | 2018-11-01 07:00 | NUR ---
REPORT RECEVIED FROM THE OFF GOING RN. SEE ASSESSMENT IN THE PTS FLOW SHEET. PT SITTING IN THE BEDSIDE CHAIR. PT HAS NO C/O PAIN AT THIS TIME AND DENIES NEEDS. 2L VIA NC. VSS. NSR ON THE MONITOR. RIGHT IJ DRESSING C/D/I. SEE IV FLOW SHEET FOR DETAILS. FC NOTED WITH CLEAR, YELLOW URINE. MIDSTERNAL AND SUBSTERNAL DRESSING C/D/I. LEFT QUINTON DRAIN COMPRESSED WITH SEROUSANG DRAINAGED NOTED. KYM GUZMAN ON BLE. IN STRUCTED THE PT TO TCDB Q1 AND TO USE HER IS 10X'S/H. PT ABLE TO PULL ABOUT 500 ON HER IS. BREAKFAST TRAY PROVIDED FOR THE PT. CALL LIG IN REACH. WILL CONT POC.
--- NOTE | 2018-11-01 07:44 | NUR ---
DR DIAZ IN THE UNIT. SEE ORDERS. IF NEEDED, GIVE PERCOCET 5 AND NOT PERCOCET 10.
--- NOTE | 2018-11-01 08:24 | NUR ---
AM MEDS GIVEN WITH NO ISSUES. PT C/O CHEST/INCISIONAL PAIN. PRN PERCOCET GIVEN. SEE MAR.
--- NOTE | 2018-11-01 09:38 | NUR ---
PT AMBULATED 46 FEET. EXTREAMLY SLOW AND SHUFFLED GAIT. PT BACK INTO BEDSIDE CHAIR. VSS CALL LIGHT IN REACH. WILL CONT POC.
--- NOTE | 2018-11-01 09:42 | NUR ---
PT BEING PROMPTED TO USE IS. PT CONT TO PULL ABOUT 500 ON HER IS.
--- NOTE | 2018-11-01 11:00 | NUR ---
REASSESSMENT COMPLETED. SEE FLOW SHEET. PRN PERCOCET GIVEN FOR INCREASING PAIN IN CHEST/INCISION. SEE MAR. VSS AT THIS TIME. MEAL TRAY PROVIDED FOR THE PT. PT NEEDED PROMPTING BUT ABLE TO FEED HERSELF. CALL LIGHT IN REACH. WILL CONT POC.
--- NOTE | 2018-11-01 12:21 | NUR ---
PT COMPLAINED OF SLIGHT NAUSEA. PRN ZOFRAN GIVEN. SEE MAR.
--- NOTE | 2018-11-01 13:06 | NUR ---
PT BEING ENCOURAGED TO TCDB QH AND TO USE HER IS 10X'S/H REMAINS TO HAVE POOR EFFORT PULLING ABOUT 500 ON HER IS. WEAK COUGH NOTED.
--- NOTE | 2018-11-01 13:49 | NUR ---
Nutrition follow up: Diet has advanced to Diabetic Cardiac Pt is eating 0-25% of meals Pt does not have teeth Offered mechanical soft diet and pt requested pureed instead as this is what she does at home Will add supplement as well RD following
--- NOTE | 2018-11-01 14:45 | NUR ---
PT FELT HER STOMACH "RUMBLING". I ASSISTED THE PT TO THE BSC. PT STATED SHE ONLY HAD GAS. PT ASSISTED BACK INTO HER BEDSIDE CHAIR. CALL LIGHT IN REACH. WILL CONT POC.
--- NOTE | 2018-11-01 18:07 | MORECARE ---
CASE MANAGEMENT DISCHARGE SUMMARY PATIENT: OMAYRA ONTIVEROS UNIT: [id number] ADM DATE: 10/29/18 AGE: 73 : 46 SEX: F ROOM/BED: [facility] AUTHOR: DAMIEN,DOC PHYSICIAN: REFERRING PHYSICIAN: ROLF DIAZ MD DATE OF SERVICE: 11/01/18 Discharge Plan Patient Name: OMAYRA ONTIVEROS Facility: [facility]:[place] : 1945 Planned Disposition: Anticipated Discharge Date: Discharge Date: Expected LOS: Initial Reviewer: [email or web address] Initial Review Date: 10/29/2018 Generated: 11/01/18 7:07 pm Comments DCP- Discharge Planning Updated by [id number]: Deepali Jimenez on 11/01/18 5:[address] Patient Name: OMAYRA ONTIVEROS Admission Status: Elective Accout number: [id number] Admission Date: 10-29-2018 : 1945 Admission Diagnosis: Attending: ROLF DIAZ Current LOS: 3 Anticipated DC Date: Planned Disposition: Primary Insurance: MEDICARE A & B Discharge Planning Comments: CM met with patient at bedside after explaining CM role and obtaining verbal consent. Patient lives at home with her Adam and plans to return there upon discharge. Patient feels this would be a safe discharge. CM discussed availability / needs of home health and medical equipment. Patient denies any discharge needs at this time. Patient states she will have her drive her home upon discharge. Patient need walk test if 02 still required upon discharge. Patient may be interested in inpatient rehab prior to discharge if needed. CM will continue to follow and assist as needed with discharge planning / needs. Processes Chemical Design Engineer: Deepali Jimenez DCPIA - Discharge Planning Initial Assessment Updated by [id number]: Deepali Jimenez on 11/01/18 6:03 pm * Is the patient Alert and Oriented? Yes * How many steps to enter\exit or inside your home? * PCP [facility]ANDANA * [facility] * Preadmission Environment Home with Family * ADLs Independent * List name and contact numbers for known caregivers / representatives who currently or will assist patient after discharge: ADAM ONTIVEROS - SPOUSE- [phone] * Verbal permission to speak to the caregivers and representatives has been obtained from the patient. Yes * Community resources currently utilized None * Additional services required to return to the preadmission environment? No * Can the patient safely return to the preadmission environment? Yes * Has this patient been hospitalized within the prior 30 days at any hospital? No Patient Name: OMAYRA ONTIVEROS Page [id number] at 1807 All edits/amendments must be made on the electronic document DICTATION DATE: 11/01/181805 PANEL FLOW MACHINE OPERATOR: CHRIS 11/01/181805 RPT#: [id number] DC DATE: STATUS: ADM IN [facility] [address] [place] [address] END OF REPORT
[2018-11-02] VITALS (24 sets, daily range): BP systolic 96–138; BP diastolic 48–87
--- NOTE | 2018-11-02 02:13 | NUR ---
PT C/O INCISIONAL PAIN, PRN PERCOCET 5MG GIVEN, SEE MAR, VSS
--- NOTE | 2018-11-02 04:30 | NUR ---
PT OOB TO BEDSIDE COMMODE, SOFT FORMED DARK GREEN BM NOTED, ASSISTED PT WITH CLEANING. PT TAKEN TO RADIOLOGY WIA WHEELCHAIR FOR IMAGING, VSS, WILL CONTINUE TO MONITOR
[2018-11-02 05:34] LABS: BASOPHILS 0.4 % (0-2); EOSINOPHILS 1.2 % (0-7); HEMATOCRIT 25.8 % (36.0-48.0); HEMOGLOBIN 8.2 g/dL (12-16); IMMATURE GRANULOCYTES 0.9 % (0-5); LYMPHOCYTES 13.3 % (15-50); MCH 27.8 pg (26.0-34.0); MCHC 31.8 g/dL (31.0-37.0); MCV 87.5 fL (80.0-100.0); MEAN PLATELET VOLUME 9.6 fL (7.4-10.4); MONOCYTES 8.8 % (2-11); NEUTROPHILS 75.4 % (40-80); RBC 2.95 10x6/uL (4.00-5.40); RDW 13.9 % (11.5-14.5); WBC 8.4 10x3/uL (4.8-10.8)
[2018-11-02 05:45] LABS: PLATELET COUNT 164 10x3/uL (130-400)
[2018-11-02 06:08] LABS: ALBUMIN 2.5 g/dL (3.4-5.0); ALKALINE PHOSPHATASE 49 U/L (46-116); ALT (SGPT) 27 U/L (10-68); BILIRUBIN - TOTAL 0.51 mg/dL (0.2-1.3); CALC OSMOLALITY 277 mosm/kg (275-300); CALCIUM 8.3 mg/dL (8.5-10.1); CARBON DIOXIDE 27.8 mmol/L (21.0-32.0); CHLORIDE - SERUM 100 mmol/L (98-107); CREATININE - SERUM 0.7 mg/dL (0.6-1.3); GLUCOSE 163 mg/dL (74-106); POTASSIUM - SERUM 3.7 mmol/L (3.5-5.1); SODIUM 136 mmol/L (136-145); UREA NITROGEN 17 mg/dL (7-18); eGFR NON AFRICAN AMERICAN 87 mL/min (90-120)
--- NOTE | 2018-11-02 07:00 | NUR ---
K+ 3.7 ON AM LABS, REPLACED PER ORDERS/MAR, VSS
--- NOTE | 2018-11-02 07:00 | NUR ---
REPORT RECEVIED FROM THE OFF GOING RN. SEE ASSESSMENT IN THE PTS FLOW SHEET. PT CURRENTLY SITTING OOB IN HER BEDSIDE CHAIR. VSS. NSR ON THE MONITOR. ON 2L VIA NC. RIGHT IJ DRESSING C/D/I. K BEING REPLACED PER OVERNIGHT SHIFT. SEE MAR. PT LITTLE OVER 500 ON HER IS. INSTRUCTED TO USE 10X'S/H. ENCOURAGED QH TCDB. PT JANICE PAIN AT THIS TIME. CALL LIGHT IN REACH. WILL CONT POC.
--- NOTE | 2018-11-02 08:28 | NUR ---
PT ASSISTED WITH REPOSITIONING. BREAKFAST TRAY PROVIDED FOR THE PT. NO NEEDS AT THIS TIME. CALL LIGHT IN REACH. WILL CONT POC.
--- NOTE | 2018-11-02 09:03 | NUR ---
PT COMPLAINING OF BACK AND CHEST/INCISIONAL PAIN AND NAUSEA. PRN ZOFRAN AND PERCOCET GIVEN WITH AM MEDS. SEE JUL. WILL CONT POC.
--- NOTE | 2018-11-02 09:36 | NUR ---
PT REQUESTED TO USE THE BSC. PT ASSISTED TO THE COMMODE AND PT NOTED TO HAVE A LARGE SEMIFORMED BROWN STOOL. PT CLEANED. PERICARE PROVIDED. PT ASSISTED BACK TO THE BEDSIDE CHAIR. VSS. WILL CONT POC.
--- NOTE | 2018-11-02 09:50 | NUR ---
AT 0845, PT WENT INTO AFIB RATE 130-140. AM MEDS GIVEN INCLUDING AMIO AND LOPRESSOR. AFTER 20 MINS, THE PT REMAINED IN AFIB WITH THE SAME RATE. DR ZAMORANO NURSE NOTIFIED TO TELL DR DIAZ. AT 0936, THE PT WAS HAVING A BOWEL MOVMENT AND THE PT CONVERTED TO NSR. 0951. N.O TO GIVE AMIO BOLUS. SEE MAR/ORDERS.
--- NOTE | 2018-11-02 10:15 | NUR ---
PHYSCIAL THEARPY AMBULATED WITH THE PT ABOUT 60+ FEET. PT HAD A SLOW AND SOMEWHAT STEADY GAIT. HAS IMPROVED FROM YESTERDAY.
--- NOTE | 2018-11-02 14:37 | TEE ---
PATIENT:OMAYRA ONTIVEROS MEDICAL RECORD: [id number] LOCATION:[place] [id number] AGE OF PATIENT: 73 ADMISSION DATE: 10/29/18 SEX: F REFERRING PHYSICIAN: INTERPRETING PHYSICIAN: LETICIA LEAL MD TRANSESOPHAGEAL ECHOCARDIOGRAM Date: 10/29/18 MARIANNE CHARGE Y INDICATIONS: CABG/AVR PREMEDICATIONS: PATIENT'S RESPONSE PROCEDURE DOPPLER MEASUREMENTS: LVIT LA PA RA LVOT RVOT Asc. Ao AV Gradient Peak AV Mean AV Area 0.8 MV Gradient Peak MV Mean MV Area INTERPRETATION: Doppler: 2-D: SEVERE AORTIC STENOSIS COLOR FLOW DOPPLER TRACE AI/MR NORMAL SALINE STUDY: MISCELLANOUS: DIAGNOSIS: PLAN: Robotic Toy Inventor:3 Dr. Sarmiento Primary Operator: Hanh FISH COMMENTS: DATE OF SERVICE: 10/29/2018 PROCEDURE: Transesophageal echo evaluation of valvular structures during aortic valve replacement and bypass surgery. FINDINGS: 1. Left ventricular chamber size is within normal limits. Left ventricular systolic function is normal. Overall ejection fraction estimated at 60% to 65%. 2. Left atrium, right atrium, and right ventricular chamber sizes are within TRANSESOPHAGEAL ECHOCARDIOGRAM REPORT [id number] OMAYRA ONTIVEROS normal limits. 3. Valvular structures: Aortic valve demonstrates severe calcific aortic stenosis, but this is not a new finding. The patient is scheduled for aortic valve replacement. The remaining valvular structures have normal structure and motion. 4. Doppler interrogation elsewise reveals only trace mitral regurgitation, no other valvular insufficiency or stenosis. 5. No evidence of pericardial effusion or left ventricular thrombus. TRANSINT:[id number] Voice Confirmation ID: [id number] DOCUMENT ID: [id number] at 1437 CC: [id number] DICTATION DATE: 10/29/18 1342 INSTRUCTIONAL SUPPORT SERVICES DIRECTOR: 10/30/[address] [facility] [address] [place] [address]
--- NOTE | 2018-11-02 15:58 | NUR ---
PT TOOK OUT HER HEARING AIDS. I PROVIDED A DENTURE CUP FOR THE HEARING AIDS AND THE CUP WAS PLACED IN THE PTS PERSONAL ORANGE BAG.
--- NOTE | 2018-11-02 17:24 | NUR ---
MEAL TRAY PROVIDED FOR THE PT. PT VSS. NELLY AGUILAR/GINA. CALL LIGHT IN REACH. WILL CONT POC.
--- NOTE | 2018-11-02 19:00 | NUR ---
SHIFT ASSESSMENT COMPLETE. PT IS A&O X4 WITH NO COMPLAINTS OF PAIN OR DISCOMFORT AT THIS TIME. SHE IS SITTING UP IN BED WITH HER GLASSES ON WATCHING TV. PERRLA, 3 MM, BRISK REACTION TO LIGHT. MUCOUS MEMBRANES MOIST, EDENTULOUS. R IJ CVL S/L, SWAB CAPS IN USE. S1S2 AUDIBLE, HR 83 NSR SHOWING ON MONITOR. MIDSTERNAL AND SUBSTERNAL DRESSINGS CDI. RR SHALLOW, DIMINISHED LUNG SOUNDS HEARD BILAT THROUGHOUT ALL LOBES. SUBSTERNAL QUINTON DRAIN DRAINING SEROSANG FLUID, COMPRESSED. ABD FLAT AND NONTENDER TO TOUCH, BS ACTIVE X4. CRUZ CATH NOTED DRAINING CLEAR YELLOW URINE. KYM HOSE ON. RADIAL AND PEDAL PULSES PALP. REPOSITIONED FOR COMFORT. VSS. CALL LIGHT IN REACH, TIGHT PARMETERS SET ON ICU MONITORS. NC ON @ 2 L/MIN, O2 SAT WNL. SHE DENIES ANY FURTHER NEEDS AT THIS TIME. WILL CONT WITH POC.
--- NOTE | 2018-11-02 21:00 | NUR ---
FSBS 170, 2 UN INSULIN GIVEN PER SLIDING SCALE. PM MEDS TAKEN WITHOUT DIFFICULTY. SHE STATES THAT SHE IS IN 9/10 PAIN AT INCISION SITES, PRN MEDS GIVEN. SITES ARE CDI. REPOSITIONED FOR COMFORT. IS USE X10, WEAK EFFORT, 500 MAX. EDUCATED HER ON THE BENEFITS OF IS. NO FURTHER NEEDS AT THIS TIME. WILL CONT WITH POC.
--- NOTE | 2018-11-02 23:00 | NUR ---
REASSESSMENT COMPLETE. NO CHANGES IN PT CONDITION. VSS. SEE FLOWSHEET FOR FURTHER DETIALS. REPOSITIONED FOR COMFORT. CALL LIGHT IN REACH, BED IN LOWEST POSTIION. WILL CONT WITH POC. IS USE WITH RT.
[2018-11-03] VITALS (25 sets, daily range): BP systolic 107–143; BP diastolic 43–72
--- NOTE | 2018-11-03 01:00 | NUR ---
PT RESTING PEACEFULLY WITH NO SIGNS OF ACUTE DISTRESS NOTED. VSS. WILL CONT WITH POC.
--- NOTE | 2018-11-03 03:00 | NUR ---
REASSESSMENT COMPLETE. VSS. SEE FLOWSHEET FOR FURTHER DETIALS. REPOSITIONED FOR COMFORT. CALL LIGHT IN REACH, BED IN LOWEST POSITION. WILL CONT WITH POC.
--- NOTE | 2018-11-03 05:00 | NUR ---
R IJ CVL DRESSING CHANGE VIA GLOBAL COMPENSATION MANAGER. SUBSTERNAL DRESSING CHANGE PER ORDERS, DATED AND LABELED.
[2018-11-03 05:59] LABS: BASOPHILS 0.5 % (0-2); EOSINOPHILS 1.9 % (0-7); HEMATOCRIT 24.7 % (36.0-48.0); HEMOGLOBIN 7.9 g/dL (12-16); IMMATURE GRANULOCYTES 1.1 % (0-5); LYMPHOCYTES 22.2 % (15-50); MCH 27.8 pg (26.0-34.0); MEAN PLATELET VOLUME 9.3 fL (7.4-10.4); NEUTROPHILS 64.3 % (40-80); PLATELET COUNT 182 10x3/uL (130-400); RBC 2.84 10x6/uL (4.00-5.40); RDW 13.6 % (11.5-14.5)
--- NOTE | 2018-11-03 06:00 | NUR ---
ASSISTED PT TO BEDSIDE CHAIR X1 ASSIST. GAIT STEADY. PT TOLERATED WELL.
[2018-11-03 06:20] LABS: ALBUMIN 2.4 g/dL (3.4-5.0); ALKALINE PHOSPHATASE 48 U/L (46-116); ALT (SGPT) 26 U/L (10-68); BILIRUBIN - TOTAL 0.38 mg/dL (0.2-1.3); CALC OSMOLALITY 277 mosm/kg (275-300); CALCIUM 8.3 mg/dL (8.5-10.1); CARBON DIOXIDE 30.9 mmol/L (21.0-32.0); CHLORIDE - SERUM 102 mmol/L (98-107); CREATININE - SERUM 0.6 mg/dL (0.6-1.3); GLUCOSE 139 mg/dL (74-106); POTASSIUM - SERUM 3.8 mmol/L (3.5-5.1); PROTEIN - SERUM 5.6 g/dL (6.4-8.2); SODIUM 138 mmol/L (136-145); eGFR NON AFRICAN AMERICAN > 90 mL/min (90-120)
[2018-11-03 06:22] LABS: UREA NITROGEN 12 mg/dL (7-18); WBC 5.7 10x3/uL (4.8-10.8)
--- NOTE | 2018-11-03 07:29 | NUR ---
ORAL CARE DONE WITH PERIDEX
--- NOTE | 2018-11-03 08:14 | NUR ---
PT UP IN CHAIR. VSS. BREAKFAST TRAY SERVED AND PT EATING BREAKFAST WITH OUT PROBLEMS.
--- NOTE | 2018-11-03 08:58 | NUR ---
PT BACK TO BED ORDERED FOR DR ZAMORANO NURSE SKIP TO DC WIRES.
--- NOTE | 2018-11-03 11:01 | NUR ---
DCD RT RADIAL A LINE. PRESSURE HELD. DSNG APPLIED. PT MYKE WELL. CRUZ CATH DCD. PT AMB IN HULL. ENTIRE LENGTH OF HULL X 2 AND MYKE WELL.
--- NOTE | 2018-11-03 11:09 | NUR ---
DCD RT RADIAL A LINE. PRESSURE HELD. DSNG APPLIED. DCD CRUZ CATH PT MYKE WELL.
--- NOTE | 2018-11-03 13:20 | NUR ---
Nutrition follow up Pt po intake did not improve on pureed diet; ~10-50% of meals Pt reports the pureed food is bland and she is requesting mechanical soft with chopped meats Changed diet per pt requests Pt is drinking Glucerna TID Encouraged pt to continue to drink Glucerna RD following per protocol
--- NOTE | 2018-11-03 14:03 | NUR ---
1000- AFIV RVR WHILE UP TO BSC. HR 145. CALLED DR DIAZ. PT PUT BACK TO BED. ORDERED MEDS GIVEN. PT BACK IN ST HR 103 AFTER 30MIN.
--- NOTE | 2018-11-03 19:00 | NUR ---
SHIFT ASSESSMENT COMPLETE. PT IS A&O X4 WITH NO COMPLAINTS OF PAIN OR DISCOMFORT AT THIS TIME. ASSISTED PT FROM CHAIR TO BED, X1 ASSIST. GAIT STEADY. S1S2 AUDIBLE, HR 69 BPM NSR SHOWING ON MONITOR. RR EVEN AND UNLAORED, DIMINISHED LUNG SOUNDS HEARD BILAT THROUGHOUT ALL LOBES. ABD FLAT AND NONTENDER TO TOUCH. BS ACTIVE X4. MIDSTERNAL AND SUBSTERNAL DRESSINGS CDI. R IJ CVL S/L DRESSING CDI. CRUZ CATH INTACT DRAINING CLEAR YELLOW URINE. KYM HOSE ON. RADIAL AND PEDAL PULSES PALP. VSS. REPOSITIONED FOR COMFORT. REFRESHMENTS BROUGHT TO BEDSIDE. CALL LIGHT IN REACH, BED IN LOWEST POSITION. WILL CONT WITH POC.
--- NOTE | 2018-11-03 21:00 | NUR ---
PM MEDS ADMIN WITH NO ISSUE. PT REQUESTS PRN PAIN MED FOR INCISIONAL AND BACK PAIN. SEE PAIN FLOWSHEET FOR FURTHER DETIALS. REPOSITIONED FOR COMFORT. IS USE X10, GOOD EFFORT, 500-700 INSPIRED.
--- NOTE | 2018-11-03 23:00 | NUR ---
REASSESSMENT COMPLETE PER FLOWSHEET. NO CHANGES IN PT CONDITION. REPOSITIONED FOR COMFORT. VSS. SHE DENIES ANY PAIN. REFRESHMENTS BROUGHT TO BEDSIDE.
[2018-11-04] VITALS (23 sets, daily range): BP systolic 101–141; BP diastolic 56–81
--- NOTE | 2018-11-04 01:00 | NUR ---
PT RESTING WITH NO SIGNS OF ACUTE DISTRESS NOTED. VSS. CALL LIGHT IN REACH, WILL CONT WITH POC.
--- NOTE | 2018-11-04 03:00 | NUR ---
REASSESSMENT COMPLETE. ASSISTED PT TO BSC, GAIT STEADY. LARGE BROWN/MUCOUS LIKE STOOL NOTED. PT BACK IN BED, NO FURTHER NEEDS AT THIS TIME. SEE FLOWSHEET FOR FURTHER DETIALS. VSS. WILL CONT WITH CLOSE MONITORING.
--- NOTE | 2018-11-04 05:00 | NUR ---
CHG BATH PROVIDED. COMPLETE LINEN CHANGE PROVIDED. ASSISTED PT TO CHAIR, GAIT STEADY. SHE IS IN GOOD SPIRITS. NO FURTHER NEEDS. WILL CONT TO MONITOR.
--- NOTE | 2018-11-04 06:47 | NUR ---
ORAL CARE DONE WITH PERIDEX
--- NOTE | 2018-11-04 09:30 | NUR ---
AMBULATED 120 FT WITH PHYSICAL THERAPY ASSIST, TOLERATED WITHOUT DIFFICULTY
--- NOTE | 2018-11-04 10:11 | NUR ---
BLOOD DRAWN FROM RIGHT IJ, DC'D IJ AFTER PER ORDER
[2018-11-04 10:40] LABS: BASOPHILS 0.6 % (0-2); EOSINOPHILS 1.4 % (0-7); HEMATOCRIT 25.3 % (36.0-48.0); HEMOGLOBIN 8.2 g/dL (12-16); IMMATURE GRANULOCYTES 3.5 % (0-5); MCHC 32.4 g/dL (31.0-37.0); MCV 86.3 fL (80.0-100.0); MEAN PLATELET VOLUME 9.2 fL (7.4-10.4); MONOCYTES 10.8 % (2-11); NEUTROPHILS 60.7 % (40-80); PLATELET COUNT 200 10x3/uL (130-400); RBC 2.93 10x6/uL (4.00-5.40); RDW 14.1 % (11.5-14.5)
[2018-11-04 10:41] LABS: WBC 7.2 10x3/uL (4.8-10.8)
--- NOTE | 2018-11-04 11:16 | NUR ---
CALLED TO ROOM, FAN TURNED BACK ON
--- NOTE | 2018-11-04 16:14 | NUR ---
Rehab Note- Acute Inpatient Rehab prescreen order received. The patient has an appropriate acute inpatient rehab diagnosis. Will visit with the patient. WIll follow at this time and plan for an inpatient acute rehab stay if the patient is in agreeance when medically stable and ready to discharge from the acute hospital. Thank you for this referral! Tanya Serrano RN Clinical Liaison, [facility] Rehab
--- NOTE | 2018-11-04 17:10 | NUR ---
C/O PAIN 02/08, PERCOCET 5MG/325MG PO GIVEN PER MAR ORDER
--- NOTE | 2018-11-04 17:55 | NUR ---
OOB TO CHAIR WITH STAND BY ASSIST, TOLERATED WITHOUT DIFFICULTY, PAIN REASSESSED AT 6
--- NOTE | 2018-11-04 19:37 | NUR ---
REPORT RECEIVED, SHIFT ASSESSMENT COMPLETED PER FLOW SHEET. AAOX4. SITTING UP IN CHAIR. PPP. 2 L O2 VIA NC. COUGH/DEEP BREATHING AND USE OF IS ENCOURAGED. PULLING 750 ON IS. DENIES NEEDS. CALL LIGHT WITHIN REACH. SEE FLOW SHEET FOR COMPLETE ASSESSMENT. WILL CONTINUE TO MONITOR.
--- NOTE | 2018-11-04 20:45 | NUR ---
SCHEDULED MEDS GIVEN, WATER PROVIDED. NO TROUBLE SWALLOWING. ASSISSTED TO BED PER HER REQUEST. AMBULATES WITH WALKER INDEPENDENTLY. REPOSITIONED IN BED. DENIES OTHER NEEDS. CALL LIGHT WITHIN REACH.
--- NOTE | 2018-11-04 22:04 | NUR ---
CALL LIGHT ANSWERED, FAN TURNED ON PER HER REQUEST, DENIES OTHER NEEDS. CALL LIGHT WITHIN REACH.
--- NOTE | 2018-11-04 23:14 | NUR ---
REASSESSMENT COMPLETED PER FLOW SHEET, SEE FOR DETAILS. NO ACUTE CHANGES NOTED. DENIES NEEDS. CALL LIGHT WITHIN REACH.
[2018-11-05] VITALS (16 sets, daily range): BP systolic 105–153; BP diastolic 56–98
--- NOTE | 2018-11-05 01:16 | NUR ---
CALL LIGHT ANSWERED, C/O PAIN, PRN PERCOCET GIVEN, SEE EMAR FOR DETAILS. DENIES OTHER NEEDS. CALL LIGHT WITHIN REACH. WILL CONTINUE TO MONITOR.
--- NOTE | 2018-11-05 03:12 | NUR ---
REASSESSMENT COMPLETED PER FLOW SHEET, SEE FOR DETAILS. NO ACUTE CHANGES NOTED. DENIES NEEDS. WILL CONTINUE TO MONITOR.
--- NOTE | 2018-11-05 05:00 | NUR ---
COMPLETE BATH GIVEN. COMPLETE BED LINEN CHANGE PROVIDED. TOLERATED ALL WELL. SITTING UP IN CHAIR. CALL LIGHT AND BELONGINGS WITHIN REACH.
[2018-11-05 06:02] LABS: BASOPHILS 0.7 % (0-2); EOSINOPHILS 1.8 % (0-7); HEMATOCRIT 26.7 % (36.0-48.0); HEMOGLOBIN 8.6 g/dL (12-16); IMMATURE GRANULOCYTES 4.8 % (0-5); LYMPHOCYTES 24.5 % (15-50); MCH 27.8 pg (26.0-34.0); MCHC 32.2 g/dL (31.0-37.0); MCV 86.4 fL (80.0-100.0); MONOCYTES 11.1 % (2-11); NEUTROPHILS 57.1 % (40-80); PLATELET COUNT 208 10x3/uL (130-400); RBC 3.09 10x6/uL (4.00-5.40); RDW 14.3 % (11.5-14.5); WBC 6.7 10x3/uL (4.8-10.8)
[2018-11-05 06:12] LABS: CALC OSMOLALITY 276 mosm/kg (275-300); CALCIUM 9.1 mg/dL (8.5-10.1); CARBON DIOXIDE 27.4 mmol/L (21.0-32.0); CHLORIDE - SERUM 100 mmol/L (98-107); CREATININE - SERUM 0.6 mg/dL (0.6-1.3); GLUCOSE 140 mg/dL (74-106); POTASSIUM - SERUM 4.2 mmol/L (3.5-5.1); SODIUM 138 mmol/L (136-145); UREA NITROGEN 9 mg/dL (7-18); eGFR NON AFRICAN AMERICAN > 90 mL/min (90-120)
--- NOTE | 2018-11-05 10:12 | NUR ---
0700 PT RECIEVED UP IN CHAIR ALERT AND OREITNED O2 NC, MIDSTERNAL AND SUBSTERNAL DRESSINGS CDI, DENIES ALL NEEDS 0900 ATE BREAKFAST AND TOOK AM MEDS WITHOU TDIFFICULTY 1000 AMBULATED WITH PT
--- NOTE | 2018-11-05 11:21 | NUR ---
Nutrition Follow Up: Chart reviewed Diet: ADA AHA PO Intake: 58% - po intake is improving BM: 11/05/18 I<O Wt loss noted Labs reviewed Meds noted including Reglan Rec continue current diet. RD following.
--- NOTE | 2018-11-05 12:17 | NUR ---
Rehab Note- Visited with the patient & discussed inpatient acute rehab. SHe really wants & feels she is able to go home with her & assistance of her daughter. Told her that she could discuss that with her physician, Spoke with the nursing staff. Will continue to follow at this time. Thank you for this referral! Tanya Serrano RN Clinical Liaison, [facility] Rehab
[2018-11-05] MEDS ORDERED: HEMOCYTE PLUS C1 CAP PO (14:51)
[2018-11-05] MEDS ORDERED: AMIODARONE HCL200 MG PO (14:52)
[2018-11-05] MEDS ORDERED: LOPRESSOR25 MG PO (14:53)
[2018-11-05] MEDS ORDERED: PERCOCET 5-3251 TAB PO (14:54)
[2018-11-05] MEDS ORDERED: ZOLOFT50 MG PO (14:55)
[2018-11-05] MEDS ORDERED: K-TAB10 MEQ PO (14:57)
[2018-11-05] MEDS ORDERED: MYLANTA / MAALO30 ML PO (14:59)
[2018-11-05] MEDS ORDERED: HUMULIN R100 U/ML SC (14:59)
[2018-11-05] MEDS ORDERED: Senokot-S Tablet PO (14:59)
[2018-11-05] MEDS ORDERED: COLACE100 MG PO (14:59)
--- NOTE | 2018-11-05 17:16 | NUR ---
1300 ATE 50% LUNC 1500 AMBULATED WITH PT 1700 ATE 50% DINNER PT TO TRANSFER TO REHAB UNIT TODAY, AWARE, DR ARELLANO NOTIFIED
--- NOTE | 2018-11-05 17:50 | NUR ---
REPORT CALLED TO REHAB UNIT, AWAITING ROOM TO BE CLEANED
--- NOTE | 2018-11-05 19:15 | NUR ---
REHAB CALLED STATING ROOM WAS READY, PT TRANSPORTED AND ASSISTED INTO BED WITHOUT DIFFICULTY
--- NOTE | 2018-11-05 22:19 | MORECARE ---
CASE MANAGEMENT DISCHARGE SUMMARY PATIENT: OMAYRA ONTIVEROS UNIT: [id number] ADM DATE: 10/29/18 AGE: 73 : [birth year] SEX: F ROOM/BED: [facility] AUTHOR: DAMIEN,DOC PHYSICIAN: REFERRING PHYSICIAN: ROLF DIAZ MD DATE OF SERVICE: 11/05/18 Discharge Plan Patient Name: OMAYRA ONTIVEROS Facility: [facility]:[place] : 1945 Planned Disposition: Anticipated Discharge Date: Discharge Date: 11/05/2018 Expected LOS: Initial Reviewer: [id number] Initial Review Date: 10/29/2018 Generated: 11/05/18 11:18 pm Comments DCP- Discharge Planning Updated by [email or web address]: Deepali Jimenez on 11/05/18 6:[address] IMM explained and served 11/05/18 @ 1754. Patient being discharged to inpatient rehab for strengthening. CM will continue to follow and assist as needed with discharge planning / needs. DCP- Discharge Planning Updated by [email or web address]: Deepali Jimenez on 11/01/18 5:[address] Patient Name: OMAYRA ONTIVEROS Admission Status: Elective Accout number: [id number] Admission Date: 10-29-2018 : 1945 Admission Diagnosis: Attending: ROLF DIAZ Current LOS: 3 Anticipated DC Date: Planned Disposition: Primary Insurance: MEDICARE A & B Discharge Planning Comments: CM met with patient at bedside after explaining CM role and obtaining verbal consent. Patient lives at home with her Adam and plans to return there upon discharge. Patient feels this would be a safe discharge. CM discussed availability / needs of home health and medical equipment. Patient denies any discharge needs at this time. Patient states she will have her drive her home upon discharge. Patient need walk test if 02 still required upon discharge. Patient may be interested in inpatient rehab prior to discharge if needed. CM will continue to follow and assist as needed with discharge planning / needs. Elevator Examiner And Adjuster: Deepali Jimenez DCPIA - Discharge Planning Initial Assessment Updated by [email or web address]: Deepali Jimenez on 11/01/18 6:03 pm * Is the patient Alert and Oriented? Yes * How many steps to enter\exit or inside your home? * PCP VANDANA * [facility]acy [facility] * Preadmission Environment Home with Family * ADLs Independent * List name and contact numbers for known caregivers / representatives who currently or will assist patient after discharge: ADAM ONTIVEROS - SPOUSE- [phone] * Verbal permission to speak to the caregivers and representatives has been obtained from the patient. Yes * Community resources currently utilized None * Additional services required to return to the preadmission environment? No * Can the patient safely return to the preadmission environment? Yes * Has this patient been hospitalized within the prior 30 days at any hospital? No Coverage Notice Reviewer: [id number] Stefan Jimenez Notice Issued Date-Time: 11/05/2018 17:54 Notice Type: IM Discharge Notice Notice Delivered To: Patient Relationship to Patient: Self Restaurant Area Director Name: Delivery Method: HAND - Hand Delivered Jeannine Days: Prior Verbal Notification: Recipient Understood Notice: Yes Recipient Signature: Yes Med Rec Note Co-signed by Attending: Coverage Notice Comment: Last DP export: 11/01/18 5:07 pm Patient Name: OMAYRA ONTIVEROS Page [phone] at 2219 All edits/amendments must be made on the electronic document DICTATION DATE: 11/05/182217 EXCEPTIONAL CHILDREN TEACHER ASSISTANT: CHRIS 11/05/182217 RPT#: [id number] DC DATE:11/05/18 STATUS: DIS IN [facility] [address] [place] [address] END OF REPORT
== END 2018-11-05 19:16 | DRG 219 ==
LOC: D.CVICU 10-29 05:00 → D.SDCHOLD 10-29 05:00 → D.CVICU 10-29 10:52
PROVIDERS: Internal Medicine Nephrology; ADMIT Thoracic Surgery (Cardiothoracic Vascular Surgery); ATTEND Thoracic Surgery (Cardiothoracic Vascular Surgery)
PROC: B24BZZ4 Ultrasonography of Heart with Aorta, Transesophageal (ICD-10-PCS; 2018-10-29)
PROC: 5A1221Z Performance of Cardiac Output, Continuous (ICD-10-PCS; 2018-10-29)
PROC: 02100Z9 Bypass Coronary Artery, One Artery from Left Internal Mammary, Open Approach (ICD-10-PCS; principal; 2018-10-29 07:30)
PROC: 02RF08Z Replacement of Aortic Valve with Zooplastic Tissue, Open Approach (ICD-10-PCS; 2018-10-29 07:30)
DX: I25.10 Atherosclerotic heart disease of native coronary artery without angina pectoris (principal); J96.02 Acute respiratory failure with hypercapnia; D62 Acute posthemorrhagic anemia; I35.0 Nonrheumatic aortic (valve) stenosis; I10 Essential (primary) hypertension; G62.9 Polyneuropathy, unspecified; K21.9 Gastro-esophageal reflux disease without esophagitis; M19.90 Unspecified osteoarthritis, unspecified site; M81.0 Age-related osteoporosis without current pathological fracture; G89.29 Other chronic pain; Z95.0 Presence of cardiac pacemaker; I48.91 Unspecified atrial fibrillation; H91.90 Unspecified hearing loss, unspecified ear; R00.0 Tachycardia, unspecified

== ENCOUNTER 2018-11-05 21:02 | Inpatient (IN) | payer MEDICARE, BC ==
[~2018-11-05] VITALS: Ht 144.8 cm; Wt 70.8 kg
--- NOTE | 2018-11-05 19:05 | NUR ---
PT ARRIVED TO UNIT VIA WC PROPELLED BY CV NURSE. TAKEN TO ROOM 1117A AND ASSISTED INTO BED WITH MOD ASSIST. PT IS ALERT AND ORIENTED X 3. SHE STATES SHE WISHES SHE HAD CHOSEN TO GO HOME INSTEAD OF COMING HERE. PT STATES SHE IS JUST SORE ALL OVER, AND NEEDS HER PAIN MEDICATION OFTEN TO KEEP IT FROM GETTING TO BAD. I ASSURED PT THAT I WOULD KEEP ON TOP OF IT, AND GET HER A PAIN PILL LEONARDO. ORDERS SENT TO ADMISSIONS VIA FAX.
--- NOTE | 2018-11-05 20:05 | NUR ---
PT STILL ADMITTED IN COMPUTER. ADMIT OFFICE STATES THEY DID NOT RECIEVE THE FAX DESPITE US HAVING A ACKNOWLEDGEMENT OF BEING SENT. ORDER RESENT.
[~2018-11-05 21:02] MED LIST changes: +AMIODARONE HCL200 MG PO; +COLACE100 MG PO; +HEMOCYTE PLUS C1 CAP PO; +HUMULIN R100 U/ML SC; +K-TAB10 MEQ PO; +LOPRESSOR25 MG PO; +MYLANTA / MAALO30 ML PO; +OPTIVE SENSITI1 EACH EACH EYE; +PERCOCET 5-3251 TAB PO; +PRED FORTE5 ML LEFT EYE; +REFRESH; +Senokot-S Tablet PO; +ZOLOFT50 MG PO
[2018-11-05 21:45] VITALS: BP 124/75
--- NOTE | 2018-11-05 22:00 | NUR ---
AFTER NUMEROUS ATTEMPTS TO FAX ORDERS, NURSE HAND WALKED THEM TO THEM. PT IS NOW VERY UPSET THAT SHE IS NOT BEING TAKEN OF, AND IS REQUIRING NUMEROUS ATTEMPTS TO CALM HER DOWN. SHE STATES WE ARE GOING TO CAUSE HER TO GO BACK INTO [facility] AND , BECAUSE WE ARE NOT GETTING HER MEDICATIONS TO HER ON TIME. I AGAIN ASSURED HER OF WHAT WE HAD DONE, AND THAT I WOULD GET THEM TO HER FAST I COULD. PT SAYS IF SHE DOES NOT GET THEM SOON SHE WILL BE LEAVING AMA.
--- NOTE | 2018-11-05 22:15 | NUR ---
PT IN COMPUTER, AND MEDS DELIVERED. SHE IS NOW HAPPY. VSWNL.
--- NOTE | 2018-11-06 01:17 | NUR ---
PT RESTING IN BED WITH EYES OPEN. NO NEEDS VOICED.
--- NOTE | 2018-11-06 02:39 | NUR ---
RESTING IN BED WITH EYES CLOSED AND RESPIRATIONS UNLABORED. NO DISTRESS NOTED. CALL LIGHT IN REACH.
[2018-11-06 03:15] VITALS: BMI 33.8
--- NOTE | 2018-11-06 06:05 | NUR ---
PT UP WORKING WITH PT AT THIS TIME.
[2018-11-06 06:23] LABS: APPEARANCE CLEAR (CLEAR); BILIRUBIN NEGATIVE (NEGATIVE); COLOR STRAW (YELLOW); GLUCOSE NEGATIVE (NEGATIVE); KETONE LARGE mg/dL (NEGATIVE); NITRITE NEGATIVE (NEGATIVE); PROTEIN NEGATIVE (NEGATIVE); SPECIFIC GRAVITY 1.005 (1.005-1.020); UROBILINOGEN NORMAL (NORMAL)
[2018-11-06 06:24] LABS: BACTERIA MANY /hpf (NONE SEEN); EPITHELIAL CELLS 0-5 /hpf (0-5); RED CELLS - URINE 0-5 /hpf (0-5)
[2018-11-06 07:37] LABS: BASOPHILS 0.6 % (0-2); EOSINOPHILS 2.7 % (0-7); HEMATOCRIT 26.5 % (36.0-48.0); HEMOGLOBIN 8.3 g/dL (12-16); IMMATURE GRANULOCYTES 4.2 % (0-5); LYMPHOCYTES 19.9 % (15-50); MCH 27.4 pg (26.0-34.0); MCHC 31.3 g/dL (31.0-37.0); MCV 87.5 fL (80.0-100.0); MONOCYTES 8.6 % (2-11); PLATELET COUNT 242 10x3/uL (130-400); RBC 3.03 10x6/uL (4.00-5.40); RDW 14.6 % (11.5-14.5); WBC 8.3 10x3/uL (4.8-10.8)
[2018-11-06 07:46] LABS: CALC OSMOLALITY 275 mosm/kg (275-300); CALCIUM 8.8 mg/dL (8.5-10.1); CHLORIDE - SERUM 100 mmol/L (98-107); CREATININE - SERUM 0.7 mg/dL (0.6-1.3); GLUCOSE 118 mg/dL (74-106); POTASSIUM - SERUM 4.1 mmol/L (3.5-5.1); SODIUM 138 mmol/L (136-145); UREA NITROGEN 10 mg/dL (7-18); eGFR NON AFRICAN AMERICAN 87 mL/min (90-120)
[2018-11-06 08:08] VITALS: BP 116/64
[2018-11-06 09:06] VITALS: Ht 144.8 cm; Wt 70.8 kg
--- NOTE | 2018-11-06 10:19 | NUR ---
OT NOTE: COMPLETED INITIAL EVAL. PERFORMED FULL SHOWER AND REMAINING ADLS TO INCLUDE DRESSING, TOILETING, AND GROOMING. PRACTICED BED MOB; FUNCTIONAL TRANSFERS, AND IN ROOM AMBULATION. SARATH GOODWIN,OTR/L
--- NOTE | 2018-11-06 13:28 | NUR ---
SITTING UP IN BED VISITING WITH HER . INCISION TO CHEST INTACT WITH GLUE COVERING IT. F/C DRAINING CLOUDY URINE.
--- NOTE | 2018-11-06 19:27 | NUR ---
PT IS RESTING IN BED WITH EYES OPEN. ALERT AND ORIENTED X 3. DENIES ACUTE DISCOMFORT AT THIS TIME. VSS. BLOOD IS INFUSING TO RIGHT AC WITHOUT DIFFICULTY. NO S/S OF ADVERSE REACTION NOTED. CHEST INCISION IS HEALING WELL. CRUZ CATH IS PATENT AND DRAINING TO A GRAVITY BAG. SR'S ARE UP X 2 IN BED. CALL LIGHT AND BEDSIDE TABLE ARE WITHIN EASY REACH.
--- NOTE | 2018-11-06 20:04 | NUR ---
PT CALLING TRAFFIC WORKFORCE REPRESENTATIVE LIGHT NUMEROUS TIMES STATING THAT HER IV SITE WAS HURTING HER SO BAD SHE COULD NOT STAND IT. NO S/S OF INFILTRATION NOTED. IV RESITED TO RIGHT WRIST WITH 20G CATH BY DAI DESAI. SITE SECURED WITH TAPE. BLOOD CHANGED TO NEW SITE. PT STATES IT STILL HURTS, BUT LESS THAN BEFORE. SHE THEN STATED THAT THE BLOOD PRESSURE CUFF WAS HURTING HER OTHER ARM, AND SHE WANTED THE CUFF LOOSENED. I INFORMED HER THAT THE CUFF WAS ON CORRECT, AND NEEDED TO STAY ON FOR Q15 MINUTE VS DURING THE BLOOD INFUSION. SHE VOICED UNDERSTANDING.
--- NOTE | 2018-11-06 22:08 | NUR ---
PT IS RESTING IN BED WITH EYES OPEN. BLOOD FINISHED. NO ADVERSE REACTIONS NOTED. VSS. NO NEEDS VOICED.
--- NOTE | 2018-11-07 00:25 | NUR ---
RESTING IN BED WITH EYES CLOSED.
--- NOTE | 2018-11-07 05:38 | NUR ---
RESTING IN BED WITH RESPIRATIONS UNLABORED. NO DISTRESS NOTED. CALL LIGHT IN REACH/
--- NOTE | 2018-11-07 08:02 | NUR ---
AWAKE AND SITTING UP IN BED. ALERT AND ORIENTED X4. CHEST INCISION IS INTACT WITH GLUE. NO S/S INFECTION. F/C PATENT WITH CLOUDY URINE. PT STATES SHE HAS BEEN SELF CATHING FOR APPX 3 YEARS AT HOME. DUE TO HER CHEST INCISION, SHE IS UNABLE TO BEND FORWARD AND SELF CATH SO SHE STILL HAS A F/C
[2018-11-07 08:31] VITALS: BP 144/78
--- NOTE | 2018-11-07 14:03 | NUR ---
SITTING UP IN BED WATCHING TV. HAS HAD SOME N/V THIS MORNING AND POOR APPETITE NOTED. ANTIEMETIC GIVEN AND IT HELPED. CALL LIGHT IN REACH
--- NOTE | 2018-11-07 16:11 | NUR ---
RESTING QUIETLY IN BED, EYES CLOSED. SIDE RAILS UP X2. BED IN LOWEST POSITION. CALL LIGHT IN REACH
[2018-11-07 18:44] VITALS: BP 127/63
--- NOTE | 2018-11-07 19:20 | NUR ---
PT IS RESTING IN BED WITH EYES OPEN. ALERT AND ORIENTED X 3. STATES: "I THINK I WILL NEED A PAIN PILL SOON. CHEST INCISION IS HEALING WELL. PT ASSISTED TO THE BATHROOM AT THIS TIME. NO BM NOTED, BUT A MODERATE AMOUNT OF GAS NOTED. CRUZ CATH IS PATENT AND DRAINING TO A GRAVITY BAG. SR'S ARE U0P X 2 IN BED. CALL LIGHT AND BEDSIDE TABLE ARE WITHIN EASY REACH.
[2018-11-07 21:18] VITALS: BP 127/63
--- NOTE | 2018-11-07 21:55 | NUR ---
PT ASSISTED TO THE BATHROOM WITH MIN ASSIST. SMALL LOOSE BM NOTED.
--- NOTE | 2018-11-07 22:05 | NUR ---
PATIENT ASLEEP AT THIS TIME. WILL CONTINUE TO MONITOR.
--- NOTE | 2018-11-08 02:23 | NUR ---
PT VOICED CONCERN THAT SHE DIDNT THINK HER CATHETER WAS DRAINING CORRECTLY. PT SHOWN THAT URINE WAS FLOWING DOWN THE LINE, AND SHE STATED IT FELT BETTER NOW.
[2018-11-08 07:36] LABS: ANION GAP 14.3 mmol/L (8-16); CALCIUM 8.6 mg/dL (8.5-10.1); CARBON DIOXIDE 26.6 mmol/L (21.0-32.0); CREATININE - SERUM 0.8 mg/dL (0.6-1.3); POTASSIUM - SERUM 3.9 mmol/L (3.5-5.1)
[2018-11-08 07:56] LABS: EOSINOPHILS 3.8 % (0-7); HEMATOCRIT 31.2 % (36.0-48.0); IMMATURE GRANULOCYTES 4.9 % (0-5); LYMPHOCYTES 25.2 % (15-50); MCH 27.6 pg (26.0-34.0); MCHC 32.1 g/dL (31.0-37.0); MCV 86.2 fL (80.0-100.0); MEAN PLATELET VOLUME 9.3 fL (7.4-10.4); MONOCYTES 8.5 % (2-11); NEUTROPHILS 56.6 % (40-80); PLATELET COUNT 260 10x3/uL (130-400); RBC 3.62 10x6/uL (4.00-5.40); RDW 15.3 % (11.5-14.5)
[2018-11-08 08:00] VITALS: BP 145/73
--- NOTE | 2018-11-08 13:26 | NUR ---
REFUSED TO EAT LUNCH. STILL NAUSEATED BUT NO EMESIS NOTED. CALL LIGHT IN REACH
--- NOTE | 2018-11-08 19:29 | NUR ---
PT IS RESTING IN BED WITH EYES OPEN. ALERT AND ORIENTED X 3 . DENIES ACUTE DISCOMFORT AT THIS TIME. MIDLINE CHEST INCISION IS HEALING WELL. CRUZ CATH IS PATENT AND DRAINING TO A GRAVITY BAG. PT REFUSING TO WEAR KYM HOSE. SR'S ARE UP X 2 IN BED. CALL LIGHT AND BEDSIDE TABLE ARE WITHIN EASY REACH.
[2018-11-08 20:51] VITALS: BP 133/73
--- NOTE | 2018-11-08 21:44 | NUR ---
PT RESTING IN BED EATING HER HS SNACK. NO NEEDS VOICED.
--- NOTE | 2018-11-09 02:22 | NUR ---
RESTING IN BED WITH RESPIRATIONS UNLABORED. NO DISTRESS NOTED. CALL LIGHT IN REACH.
--- NOTE | 2018-11-09 05:47 | NUR ---
PT RESTING IN BED WITH EYES CLOSED.
[2018-11-09 08:00] VITALS: BP 148/72
--- NOTE | 2018-11-09 08:00 | NUR ---
SHIFT ASSMT COMPLETED.UP OOB FOR BREAKFAST.CL IN REACH.STATED FEELING NAUSEA.WILL GIVE PHENERGAN.FC PATENT.
--- NOTE | 2018-11-09 09:07 | RHP ---
PATIENT: OMAYRA ONTIVEROS MEDICAL RECORD: [id number] ACCOUNT: [id number] LOCATION:[facility]1117 : [birth year] ADMISSION DATE: 11/05/18 REHABILITATION HISTORY AND PHYSICAL EXAMINATION POST ADMISSION PHYSICIAN EXAMINATION POST ADMISSION PHYSICAL EXAMINATION AND HISTORY AND PHYSICAL DATE OF ADMISSION: 11/05/2018 ADMITTING DIAGNOSIS: Critical illness myopathy. HISTORY OF PRESENT ILLNESS: The patient admitted to the inpatient rehab for a neurological condition of critical illness myopathy. She is a 73-year-old female patient, who was admitted from the hospital after aortic valve replacement, coronary artery bypass grafting on October 29. She has had some postop complications and an extended hospitalization. She has history of hypertension, atrial fib, coronary artery disease, neuropathy, cataracts, constipation, osteoarthritis, and osteoporosis. She is on telemetry and requiring supplemental O2. She has a Alvarez catheter. She has acute blood loss anemia, acute pain, debility, deconditioning, and impaired mobility. She is a fall risk. These are all barriers to her discharge home at this time. The patient lives at home with her , was independent with her mobility and ADLs prior to this. She is currently set up for mod assist with ADLs and mod assist with her mobility. She and her family plan for her to return home with her hopefully as close to her prior level of functioning as she can get. Comorbidities in this patient include critical illness myopathy, sinus tach, status post aortic valve replacement, hypertension, pacemaker, neuropathy, cataracts, constipation, osteoarthritis, chronic back pain, and osteoporosis. PAST MEDICAL HISTORY: Significant for neuropathy, weakness, cataracts, glasses, dentures, hearing aids, hypertension, atrial fib, coronary artery disease, hyperlipidemia, pneumonia in the past, acid reflux, osteoporosis, spinal stenosis. PAST SURGICAL HISTORY: Includes hysterectomy, gallbladder surgery, appendectomy, 4 pacemaker placements, carpal tunnel, and neck surgery. ALLERGIES: ADHESIVES, NONSTEROIDAL ANTI-INFLAMMATORIES, MORPHINE, AND ASPIRIN. CURRENT MEDICATIONS: Include metformin 500 mg daily, Zoloft 50 mg daily, Protonix 40 mg daily, prednisolone drop b.i.d., Senna 2 tabs at bedtime, potassium 10 mEq b.i.d., oxycodone 5/325 one tab every 6 hours p.r.n., metoprolol 12.5 mg b.i.d., Mylanta 30 cc every 4 hours p.r.n. She is on a low-resistant sliding scale with regular insulin, Neurontin 800 mg b.i.d., fexofenadine 180 mg daily, Colace 100 mg b.i.d., Lipitor 40 mg at bedtime, and amiodarone 400 mg b.i.d. HABITS: No current alcohol or tobacco use. FAMILY HISTORY: Noncontributory. SOCIAL HISTORY: The patient hopes to return back home and get back to her prior level of functioning. HISTORY AND PHYSICAL [id number] OMAYRA ONTIVEROS REVIEW OF SYSTEMS: GENERAL: Does complain of some weakness and fatigue. HEENT: Denies cold, cough, or congestion. CARDIOVASCULAR: Denies chest pain. PHYSICAL EXAMINATION: VITAL SIGNS: Stable, afebrile. GENERAL: Elderly female, in no acute distress upon exam. HEENT: Normocephalic and atraumatic. Mucosa moist. NECK: Supple. No lymphadenopathy. LUNGS: Clear at this time. HEART: Regular rate and rhythm. ABDOMEN: Benign. EXTREMITIES: No clubbing, cyanosis or edema. NEUROLOGIC: She does seen mainly intact, although she does have proximal muscle weakness and difficulty arising from the bed to chair. LABORATORY DATA: White count is 8.3, H&H of 8.8 and 26.5, and platelet count is 242. Sodium 138, potassium 4.1, BUN and creatinine of 10 and 0.7, blood sugar is noted to be 118. Admit UA showed a large amount of ketones, also 2+ leukocyte esterase, and many bacteria. ASSESSMENT: This 73-year-old female patient admitted to the rehab with a working diagnosis of critical illness myopathy, status post valve replacement, coronary artery bypass grafting. The patient has potential to make improvement. We will institute the following multidisciplinary therapies including, not limited to, physical, occupational, respiratory, speech, nutritional services, prosthetics, and orthotics. Given her complex medical condition and risks for more complications, rehabilitation services cannot be provided at a lower level of care such as a skilled nurse facility. PLAN: 1. Admit to [facility] for inpatient therapy to include the following disciplines; A. Physical therapy to improve gait, all transfer skills, and bed mobility to modified independent level. B. Occupational therapy to modified independent level. C. Case management to assist with discharge planning and placement options. D. Nutrition to assist with nutritional needs. E. Rehabilitation nursing to assist in monitoring the patient's underlying medical conditions and to assist with any type of bowel or bladder management. 2. The patient's current medications and medical care will be continued. 3. The patient will be placed on standard fall precautions. 4. Estimated length of stay is approximately 7-10 days. 5. Go ahead and give her a unit of blood secondary to her acute blood loss anemia. I am going go ahead and also treat her with some Levaquin for urinary tract infection, follow up in the a.m. TRANSINT:[id number] Voice Confirmation ID: [id number] DOCUMENT ID: [id number] ROSANNA notes whether there has been none or any medical/functional change since admission: - No change since prescreen. HISTORY AND PHYSICAL [id number] OMAYRA ONTIVEROS attests patient continues to be appropriate for IRF: - Continues to be appropriate. ROSALIA STEVENS MD at 0907 CC: [id number] DICTATION DATE: 11/06/18 1156 DIRECTOR OF INSTRUCTIONAL TECHNOLOGY: 11/06/18 1315 ADM IN [facility] [address] [id number]
--- NOTE | 2018-11-09 12:00 | NUR ---
FSBS 119;SITTING UP IN WC FOR LUNCH.
--- NOTE | 2018-11-09 12:06 | NUR ---
PATIENT ADMITTED TO REHAB FROM ACUTE FLOOR. PATIENT HAS NO DME AT HOME . HER PCP IS DR. ROSS. DISCHARGE PLANS ARE FOR PATIENT TO RETURN TO HER HOME WITH FAMILY. WILL CONTINUE TO FOLLOW WITH PATIENT.
--- NOTE | 2018-11-09 14:53 | NUR ---
Nutrition follow up Pt is on a diabetic diet with recent documented intake Pt reports some nausea and poor po intake Offered Glucerna and pt denied Discussed food toleration and custom ordered dinner Educate pt on the importance of nutrition while in therapy Encouraged 50% intake of meals as tolerated RD following
[2018-11-09 19:00] VITALS: BP 141/66
[2018-11-10 07:43] LABS: CALC OSMOLALITY 276 mosm/kg (275-300); CALCIUM 8.8 mg/dL (8.5-10.1); CHLORIDE - SERUM 102 mmol/L (98-107); CREATININE - SERUM 0.7 mg/dL (0.6-1.3); GLUCOSE 106 mg/dL (74-106); POTASSIUM - SERUM 4.1 mmol/L (3.5-5.1); SODIUM 139 mmol/L (136-145); UREA NITROGEN 9 mg/dL (7-18); eGFR NON AFRICAN AMERICAN 87 mL/min (90-120)
[2018-11-10 07:48] LABS: HEMATOCRIT 31.2 % (36.0-48.0); HEMOGLOBIN 10.2 g/dL (12-16); MCH 28.4 pg (26.0-34.0); MCHC 32.7 g/dL (31.0-37.0); MCV 86.9 fL (80.0-100.0); MEAN PLATELET VOLUME 10.1 fL (7.4-10.4); PLATELET COUNT 269 10x3/uL (130-400); RBC 3.59 10x6/uL (4.00-5.40); RDW 15.1 % (11.5-14.5); WBC 9.8 10x3/uL (4.8-10.8)
[2018-11-10 08:00] VITALS: BP 138/75
--- NOTE | 2018-11-10 08:00 | NUR ---
SHIFT ASSMT COMPLETED.BREAKFAST GIVEN.
--- NOTE | 2018-11-10 09:00 | NUR ---
IV SL DC'D WITH CATH TIP INTACT.
--- NOTE | 2018-11-10 09:15 | NUR ---
VOMITIED SM AMT UNDIGESTED GRAPES.STATES JUST CLEAN ME UP AND LET ME REST.IM FINE AND IM GOING HOME.
[2018-11-10 09:19] LABS: ANISOCYTOSIS OCC; EOSINOPHILS 2 % (0-7); LYMPHOCYTES 19 % (15-50); MONOCYTES 8 % (2-11); NEUTROPHILS 69 % (40-80); PLATELET ESTIMATE INCREASED; PLATELET MORPHOLOGY PLT CLUMPS PRESENT
--- NOTE | 2018-11-10 12:00 | NUR ---
AT BEDSIDE.MYKE LUNCH.
--- NOTE | 2018-11-10 14:00 | NUR ---
RESTING QUIETLY.NAPPING;DENIES NEEDS.
--- NOTE | 2018-11-10 14:24 | NUR ---
PATIENT DISCHARGING HOME TODAY WITH FAMILY. [facility] WILL PROVIDE THERAPY AT HOME. NO NEW DME NEEDED AT THIS TIME. DR. ROSS 11/22/18 @ 10:15, DR. DIAZ 12/08/18 @ 1:00. PATIENT CHOICE FORM AND IMFM FORM SIGNED, COPY GIVEN TO PATIENT AND FILED IN CHART. DISCHARGE INSTRUCTIONS WITH FIM DATA FAXED TO PCP, HOME HEALTH AND REVIEWED WITH PATIENT.
--- NOTE | 2018-11-10 16:00 | NUR ---
REVIEWED MEDS AND RX GIVEN.[facility] TO SEE.F/U APPTS GIVEN.DC'D TO HOME WITH .
== END 2018-11-10 16:40 | disposition home health service (06) | DRG 92 ==
LOC: D.REHAB 21:02
PROVIDERS: ADMIT Emergency Medicine; ATTEND Emergency Medicine
DX: G72.81 Critical illness myopathy (principal); D62 Acute posthemorrhagic anemia; Z95.1 Presence of aortocoronary bypass graft; Z95.2 Presence of prosthetic heart valve; I10 Essential (primary) hypertension; I48.91 Unspecified atrial fibrillation; I25.10 Atherosclerotic heart disease of native coronary artery without angina pectoris; M19.90 Unspecified osteoarthritis, unspecified site; R00.0 Tachycardia, unspecified; G62.9 Polyneuropathy, unspecified; M81.0 Age-related osteoporosis without current pathological fracture; K59.00 Constipation, unspecified; Z95.0 Presence of cardiac pacemaker; K21.9 Gastro-esophageal reflux disease without esophagitis

== ENCOUNTER → 2018-12-07 14:50 | Outpatient (CLI) | payer MEDICARE, BC ==
[2018-11-06 09:06] VITALS: BMI 33.7
[2018-12-07 15:23] LABS: HEMATOCRIT 37.1 % (36.0-48.0); HEMOGLOBIN 11.9 g/dL (12-16); MCH 27.2 pg (26.0-34.0); MCHC 32.1 g/dL (31.0-37.0); MCV 84.7 fL (80.0-100.0); MEAN PLATELET VOLUME 10.2 fL (7.4-10.4); RBC 4.38 10x6/uL (4.00-5.40); RDW 13.5 % (11.5-14.5); WBC 6.6 10x3/uL (4.8-10.8)
[2018-12-07 16:04] LABS: ALBUMIN 3.8 g/dL (3.4-5.0); ANION GAP 14.6 mmol/L (8-16); BILIRUBIN - TOTAL 0.32 mg/dL (0.2-1.3); CARBON DIOXIDE 25.4 mmol/L (21.0-32.0); CREATININE - SERUM 0.9 mg/dL (0.6-1.3); PROTEIN - SERUM 7.3 g/dL (6.4-8.2)
== END | disposition home or self-care (01) ==
LOC: D.RAD 14:50
PROVIDERS: ATTEND Thoracic Surgery (Cardiothoracic Vascular Surgery)
DX: J91.8 Pleural effusion in other conditions classified elsewhere (principal); D64.9 Anemia, unspecified

== ENCOUNTER → 2019-02-11 09:06 | Outpatient (CLI) | payer MEDICARE, BC ==
[2018-11-06 09:06] VITALS: BMI 33.7
--- NOTE | 2019-02-15 13:03 | EC ---
PATIENT:OMAYRA ONTIVEROS DATE OF SERVICE: 02/11/19 SEX: F MEDICAL RECORD: [id number] DATE OF : 47 LOCATION:D[facility] AGE OF PATIENT: 73 ADMISSION DATE: 02/11/19 REFERRING PHYSICIAN: INTERPRETING PHYSICIAN: ROSY ABAD MD ECHOCARDIOGRAM REPORT ECHO CHARGES 4 ECHO COMPLETE Date: 02/11/19 CLINICAL DIAGNOSIS: DYSPNEA/AVR/CABG HX OF PACEMAKER,HTN/DM ECHOCARDIOGRAPHIC MEASUREMENTS (adult normal given) AC root (d.<3.7cm) 2.7 cm LV Septum d (<1.2 cm> 1.3 cm Valve Excursion 1.4 cm LV Septum (systole) 1.5 cm Left Atria (s.<4.0cm> 3.2 cm LVPW d(<1.2cm) 1.1 cm RV (d.<2.3cm) 3.5 cm LVPW (sytole) 1.3 cm LV diastole(<5.6CM) 4.6 cm MV E-F(>70mm/sec) cm LV systole 3.0 cm LVOT Diameter 1.6 cm MV exc.(>10mm) 1.0 cm Est.ejection fraction (50-75%) % DOPPLER: LVIT cm/sec A 91.0 cm/sec E 64.0 cm/sec LA cm/sec RVSP 34 mmHg LVOT 109 cm/sec AOP1/2T m/s Asc. Ao 213 cm/sec RVOT 53 cm/sec RA cm/sec PA 112 cm/sec AV Gradient Peak 18.15mmHg AV Mean 11.66mmHg AV Area 1.0 cm MV Gradient Peak 3.37 mmHg MV Mean 1.68 mmHg MV Area cm COMMENTS: Casing Puller: 2 YASMEEN FISH Wildlife Removal Specialist: 3 Dr. Sarmiento TAPE# PACS Pericardial Effusion N DATE OF SERVICE: Adequate 2D, color flow and spectral Doppler, M-mode. LVH is present. LV internal dimensions are normal. Wall motion is normal. EF is greater than or equal to 55%. Tissue prosthetic aortic valve is noted with acceptable Doppler velocity and no significant AI. Left atrium is normal at 3.2 cm. Mitral valve shows no prolapse. Mild MR. Right-sided chambers are grossly normal. [id number] TR. ECHOCARDIOGRAM REPORT [id number] OMAYRA ONTIVEROS TRANSINT:[id number] Voice Confirmation ID: [id number] DOCUMENT ID: [id number] ROSY ABAD MD at 1303 CC: [id number] DICTATION DATE: 02/12/19 1036 REGISTERED PHARMACY TECHNICIAN: 02/12/19 1124 DEP CLI 02/11/19 [place] [id number] [place] [id number]
== END | disposition home or self-care (01) ==
LOC: D.HCCECHO 09:06 → D.HCCARDIO 09:30
PROVIDERS: ATTEND Internal Medicine Interventional Cardiology
DX: R06.02 Shortness of breath (principal)

== ENCOUNTER → 2019-11-22 10:09 | Outpatient (CLI) | payer MEDICARE, BC ==
[2018-11-06 09:06] VITALS: BMI 33.7
== END | disposition home or self-care (01) ==
LOC: D.CT 10:09
PROVIDERS: ATTEND Neurological Surgery
DX: M54.16 Radiculopathy, lumbar region (principal)